=== PATIENT | female | born 1965 | race Hispanic/Latino ===

== ENCOUNTER 2016-12-27 18:00 | Observation (INO) | payer MEDICAID ==
[2016-12-27 18:00] VITALS: BMI 25.6
[2016-12-27] MEDS ORDERED: Albuterol-Ipratrop 3 mg / 0.5 (3 ml) UD INH STA (18:44)
[2016-12-27 18:45] VITALS: O2SAT 98
[2016-12-27] MEDS ORDERED: DiphenhydrAMINE 50 mg/ml Inj IVP STA (18:45)
[2016-12-27 18:58] LABS: ABG ALLEN TEST YES; ARTERIAL BLOOD GAS HCO3 23.1 mmol/L (21-28); ARTERIAL BLOOD GAS MODE NC; ARTERIAL BLOOD GAS PH 7.36 (7.35-7.45); ARTERIAL BLOOD GAS PO2 130 mm/Hg (80-100)
[2016-12-27 19:22] LABS: BASO # 0.1 K/uL (0.0-0.2); BASO % 0.7 % (0.0-2.0); EOS # 0.2 K/uL (0.0-0.7); EOS % 1.9 % (0.0-4.0); HEMATOCRIT 43.6 % (34.0-47.0); LYMPH # 3.3 K/uL (1.0-4.3); MEAN CELL VOLUME 97.4 fl (81.0-99.0); MEAN CORPUSCULAR HEMOGLOBIN 33.7 pg (27.0-31.0); MEAN CORPUSCULAR HGB CONC 34.5 g/dL (33.0-37.0); MEAN PLATELET VOLUME 9.6 fl (7.2-11.7); MONO % 9.4 % (0.0-10.0); NEUT # 6.3 K/uL (1.8-7.0); NRBC % 0.1 % (0.0-0.0); RED CELL DISTRIBUTION WIDTH 15.8 % (11.5-14.5); WHITE BLOOD COUNT 10.9 K/uL (4.8-10.8)
[2016-12-27 19:27] LABS: ALB/GLOB RATIO 1.1 (1.0-2.1); ALKALINE PHOSPHATASE 69 U/L (38-126); ALT/SGPT 18 U/L (9-52); AST/SGOT 36 U/L (14-36); BILIRUBIN,TOTAL 0.9 mg/dl (0.2-1.3); BLOOD UREA NITROGEN 9 mg/dl (7-17); CARBON DIOXIDE 21 mmol/L (22-30); CHLORIDE 106 mmol/L (98-107); GFR AFRICAN-AMERICAN > 60; GLUCOSE,RANDOM 97 mg/dL (65-105); MAGNESIUM 1.9 MG/DL (1.6-2.3); PHOSPHOROUS 4.4 mg/dl (2.5-4.5); POTASSIUM 4.7 MMOL/L (3.6-5.0); SODIUM 136 mmol/l (132-148); TOTAL PROTEIN 7.3 G/DL (6.3-8.2)
--- NOTE | 2016-12-27 19:37 | ED PDOC ---
HPI: SOB/CHF/COPD Time Seen by Provider: 12/27/16 18:14 Chief Complaint (Nursing): Shortness Of Breath Chief Complaint (Provider): Cough/Shortness of Breath History Per: Patient History/Exam Limitations: no limitations Onset/Duration Of Symptoms: Days (x4) Current Symptoms Are (Timing): Still Present Additional Complaint(s): 18:14 Gema Zapien is a 51 year old female with a history of COPD and asthma presents to the ED with a chief complaint of cough with associated greenish sputum and chest tightness that she has been experiencing for the last four days. Patient states that she has been using Albuterol with minimal relief. Her additional associated symptoms include shortness of breath, chills, rhinorrhea, and sore throat, but denies any fever leg swelling, or outright chest pain. PMD: Brijesh Johnson Past Medical History Vital Signs: Last Vital Signs Temp 98.2 F 12/28/16 02:03 Pulse 87 12/28/16 02:03 Resp 18 12/28/16 02:03 BP 118/78 12/28/16 02:03 Pulse Ox 98 12/28/16 02:03 - Medical History PMH: Asthma, COPD, HTN, Hypercholesterolemia, Pneumonia, Seizures Denies: HIV, Chronic Kidney Disease, Sexually Transmitted Disease - Family History Family History: States: Unknown Family Hx - Social History Current smoker - smoking cessation education provided: Yes SMOKER/PACKS PER DAY:: 1 Alcohol: Social - Immunization History Hx Tetanus Toxoid Vaccination: No Hx Influenza Vaccination: Yes (2013) Hx Pneumococcal Vaccination: Yes - Home Medications Home Medications: Ambulatory Orders Medication Instructions Recorded Albuterol HFA [Ventolin HFA 90 1 - 2 puff IH Q4 PRN #1 inhaler 05/10/16 mcg/actuation (8 g)] Prednisone [Deltasone] 60 mg PO DAILY 05/10/16 Tiotropium [Spiriva] 18 mcg IH DAILY 05/10/16 Albuterol HFA [Ventolin HFA 90 2 puff IH [id number] PRN #1 each 08/02/16 mcg/actuation (8 g)] Ondansetron ODT [Zofran ODT] 1 odt PO BID PRN #6 odt 08/02/16 - Allergies Allergies/Adverse Reactions: Allergies Allergy/AdvReac Type Severity Reaction Status Date / Time apple Allergy Severe ITCHING Verified 03/06/16 21:54 peach Allergy Severe ITCHING Verified 03/06/16 21:54 peanut Allergy Severe ITCHING Verified 03/06/16 21:54 plum Allergy Severe ITCHING Verified 03/06/16 21:54 Review of Systems Constitutional: Positive for: Chills. Negative for: Fever ENT: Positive for: Nose Discharge (rhinorrhea), Throat Pain (sore throat) Cardiovascular: Positive for: Other (chest tightness). Negative for: Chest Pain Respiratory: Positive for: Cough (with greenish sputum), Shortness of Breath Physical Exam - Reviewed Nursing Documentation Reviewed: Yes Vital Signs Reviewed: Yes - Physical Exam Appears: Positive for: Non-toxic, No Acute Distress (Patient is in mild respiratory distress) Head Exam: Positive for: ATRAUMATIC, NORMOCEPHALIC Skin: Positive for: Warm, Dry ENT: Positive for: Pharynx Is (clear), Other (tacky mucous membranes, normal nasal membranes) Cardiovascular/Chest: Positive for: Regular Rate, Rhythm, Chest Non Tender. Negative for: Murmur Respiratory: Positive for: Rhonchi (diffuse), Respiratory Distress (mild). Negative for: Normal Breath Sounds (lung sounds faintn), Accessory Muscle Use, Wheezing Extremity: Negative for: Pedal Edema Neurologic/Psych: Positive for: Alert, Oriented - Laboratory Results Result Diagrams: 12/27/16 19:13 12/27/16 19:13 - ECG O2 Sat by Pulse Oximetry: 98 (RA) Pulse Ox Interpretation: Normal Medical Decision Making Medical Decision Makin:45 Initial Impression: Cough/Shortness of Breath, ddx include COPD Exacerbation vs. Pneumonia vs. Bronchitis vs. Upper Respiratory Infection Initial Plan: * EKG * BNP * CMP * CBC * Magnesium * Phosphorous * Troponin 1 * Urine Dipstick * Urine * Blood Culture * Flu Swab * Albuterol 3 ml INH * Benadryl 25 mg IV * Methylprednisolone 125 mg IV * Promethazine 25 mg * Reevaluation * On reeval pt somnolent and when aroused she reports respiratory distress but does not appear so. Ordered alcohol level. Endorsed to Dr Ernandez pending sobriety. Scribe Attestation: Documented by Maria Elena Ann, acting as a scribe for Graciela Cui MD. Provider Scribe Attestation: All medical record entries made by the Scribe were at my direction and personally dictated by me. I have reviewed the chart and agree that the record accurately reflects my personal performance of the history, physical exam, medical decision making, and the department course for this patient. I have also personally directed, reviewed, and agree with the discharge instructions and disposition. Disposition - Clinical Impression Clinical Impression: Alcohol abuse with uncomplicated intoxication, COPD (chronic obstructive pulmonary disease) - Disposition Disposition Time: 00:00 Condition: GOOD
--- NOTE | 2016-12-28 01:00 | ED PDOC ---
- Laboratory Results Result Diagrams: 12/27/16 19:13 12/27/16 19:13 - ECG O2 Sat by Pulse Oximetry: 98 (RA) - Progress Re-evaluation Time: 03:00 Condition: Re-examined, Improved Medical Decision Making Medical Decision Making: Patient signed out from Dr. Cui at 0000 pending clinical sobriety. Scribe~Attestation: Documented by Montse De La Fuente acting as a~scribe~for Dr. Barrera Ernandez MD. ~ Provider~Scribe~Attestation: All medical record entries made by the~Scribe~were at my direction and personally dictated by me. I have reviewed the chart and agree that the record accurately reflects my personal performance of the history, physical exam, medical decision making, and the department course for this patient. I have also personally directed, reviewed, and agree with the discharge instructions and disposition. ~ Disposition Doctor Will See Patient In The: Office Counseled Patient/Family Regarding: Studies Performed, Diagnosis, Need For Followup - Clinical Impression Clinical Impression: Alcohol abuse with uncomplicated intoxication, COPD (chronic obstructive pulmonary disease) - POA Present On Arrival: None - Disposition Disposition: Routine/Home Disposition Time: 03:30 Condition: GOOD
[2016-12-28 02:04] VITALS: BP 118/78; PULSE 87; RESP 18; TEMP 98.2
--- NOTE | 2016-12-28 11:22 | CARD ---
APPROVED REPORT EKG Measurement Heart [id number] <Conclusion> Normal sinus rhythm Possible Left atrial enlargement Prolonged QT Abnormal ECG
== END 2016-12-28 03:55 | disposition home or self-care (01) ==
LOC: H.ER 18:00 → H.EROBSV 20:09
PROVIDERS: ADMIT Emergency Medicine; ATTEND Emergency Medicine
DX: F10.120 Alcohol abuse with intoxication, uncomplicated (principal); Y90.5 Blood alcohol level of 100-119 mg/100 ml; E78.00 Pure hypercholesterolemia, unspecified; F17.210 Nicotine dependence, cigarettes, uncomplicated; I10 Essential (primary) hypertension; J44.9 Chronic obstructive pulmonary disease, unspecified; J45.909 Unspecified asthma, uncomplicated; Z91.010 Allergy to peanuts; Z91.018 Allergy to other foods

== ENCOUNTER 2017-01-09 03:25 | Emergency (ER) | payer MEDICAID ==
[2017-01-09 03:25] VITALS: BMI 25.6
[2017-01-09 03:36] VITALS: BP 137/62; PULSE 77; RESP 17; TEMP 98.1; O2SAT 95
--- NOTE | 2017-01-09 05:33 | ED PDOC ---
HPI: Psych/Substance Abuse Time Seen by Provider: 01/09/17 03:45 Chief Complaint (Nursing): Alcohol Ingestion Chief Complaint (Provider): Alcohol Intoxication ED Caveat: Intoxicated (Alcohol intoxication) History Per: EMS History/Exam Limitations: intoxication (Alcohol intoxication) Onset/Duration Of Symptoms: Hrs Current Symptoms Are (Timing): Still Present Additional Complaint(s): Gema Zapien, a 51 year old female, presents to the ED for alcohol intoxication. The patient's history is limited due to their current state of intoxication. The patient was brought in by the EMS, who found her sitting intoxicated, outside of a homeless alf. Denies medical complaints but admits to alcohol use. Past Medical History Vital Signs: Last Vital Signs Temp 98.1 F 01/09/17 03:34 Pulse 77 01/09/17 03:34 Resp 17 01/09/17 03:34 BP 137/62 01/09/17 03:34 Pulse Ox 95 01/09/17 03:34 - Medical History PMH: Asthma, COPD, HTN, Hypercholesterolemia, Pneumonia, Seizures Denies: HIV, Chronic Kidney Disease, Sexually Transmitted Disease Other PMH: Alcoholism - Family History Family History: States: Unknown Family Hx - Immunization History Hx Tetanus Toxoid Vaccination: No Hx Influenza Vaccination: Yes (2013) Hx Pneumococcal Vaccination: Yes - Home Medications Home Medications: Ambulatory Orders Medication Instructions Recorded Albuterol HFA [Ventolin HFA 90 1 - 2 puff IH Q4 PRN #1 inhaler 05/10/16 mcg/actuation (8 g)] Prednisone [Deltasone] 60 mg PO DAILY 05/10/16 Tiotropium [Spiriva] 18 mcg IH DAILY 05/10/16 Albuterol HFA [Ventolin HFA 90 2 puff IH [id number] PRN #1 each 08/02/16 mcg/actuation (8 g)] Ondansetron ODT [Zofran ODT] 1 odt PO BID PRN #6 odt 08/02/16 - Allergies Allergies/Adverse Reactions: Allergies Allergy/AdvReac Type Severity Reaction Status Date / Time apple Allergy Severe ITCHING Verified 03/06/16 21:54 peach Allergy Severe ITCHING Verified 03/06/16 21:54 peanut Allergy Severe ITCHING Verified 03/06/16 21:54 plum Allergy Severe ITCHING Verified 03/06/16 21:54 Review of Systems Review Of Systems: ROS cannot be obtained secondary to pt's inabilty to answer questions. Neurological: Positive for: Change in Speech (Slurred speech due to alcohol intoxication) Physical Exam - Reviewed Nursing Documentation Reviewed: Yes Vital Signs Reviewed: Yes - Physical Exam Appears: Positive for: Non-toxic, No Acute Distress Head Exam: Positive for: ATRAUMATIC, NORMOCEPHALIC Skin: Positive for: Normal Color, Warm, Dry Eye Exam: Positive for: Normal appearance, EOMI, PERRL ENT: Positive for: Normal ENT Inspection Neck: Positive for: Normal, Painless ROM, Supple Cardiovascular/Chest: Positive for: Regular Rate, Rhythm, Chest Non Tender. Negative for: Tachycardia Respiratory: Positive for: Normal Breath Sounds. Negative for: Wheezing, Respiratory Distress Gastrointestinal/Abdominal: Positive for: Normal Exam, Soft. Negative for: Tenderness Back: Positive for: Normal Inspection. Negative for: L CVA Tenderness, R CVA Tenderness Extremity: Positive for: Normal ROM. Negative for: Tenderness, Deformity, Swelling Neurologic/Psych: Positive for: Alert, Oriented - ECG O2 Sat by Pulse Oximetry: 95 Medical Decision Making Medical Decision Makin:45 Initial Impression: 51 year old female with Alcohol Intoxication Initial Plan: * Alcohol serum * Drug screen * Upreg * Accucheck Labs reviewed no clinically sig abnormalities with exception of elevated BAL At 6:30AM pt observed by nursing staff to be AAO x3 and have fluent speech and steady gait. Patient ambulated out of ED without discharge papers. DX Alcohol Intoxication Stable Scribe Attestation: Documented by Elvira Rolle acting as a scribe for Julio Murrell MD. Scribe Attestation: All medical record entries made by the Scribe were at my direction and personally dictated by me. I have reviewed the chart and agree that the record accurately reflects my personal performance of the history, physical exam, medical decision making, and the department course for this patient. I have also personally directed, reviewed, and agree with the discharge instructions and disposition. Disposition - Clinical Impression Clinical Impression: Alcohol intoxication - Patient ED Disposition Is Patient to be Admitted: No - Disposition Disposition: Routine/Home Disposition Time: 06:30 Condition: STABLE
== END 2017-01-09 06:50 | disposition home or self-care (01) ==
LOC: H.ER 03:25
DX: F10.129 Alcohol abuse with intoxication, unspecified (principal); E78.00 Pure hypercholesterolemia, unspecified; I10 Essential (primary) hypertension; J44.9 Chronic obstructive pulmonary disease, unspecified; J45.909 Unspecified asthma, uncomplicated

== ENCOUNTER 2017-02-04 01:56 | Emergency (ER) | payer MEDICAID ==
[2017-02-04 01:57] VITALS: BMI 25.6
[2017-02-04] MEDS ORDERED: Albuterol-Ipratrop 3 mg / 0.5 (3 ml) UD INH STA ×2 (02:22)
[2017-02-04] MEDS ORDERED: Albuterol-Ipratrop 3 mg / 0.5 (3 ml) UD ONE (02:35)
--- NOTE | 2017-02-04 02:45 | ED PDOC ---
HPI: SOB/CHF/COPD Time Seen by Provider: 02/04/17 02:02 Chief Complaint (Nursing): Respiratory Distress Chief Complaint (Provider): Respiratory Distress History Per: Patient History/Exam Limitations: no limitations Onset/Duration Of Symptoms: Mins Associated Symptoms: denies: Fever, Chills Additional Complaint(s): 51 y/o female patient presenting to the ED with wheezing. PT came into to charge phone and seek respite from the cold. After pt was informed by security she could not stay in the ED if she is not a patient, PT asked to be entered into system for Wheezing. PT states she has a past medical history of COPD. Past Medical History Reviewed: Historical Data, Nursing Documentation, Vital Signs Vital Signs: Last Vital Signs Temp 97.8 F 02/04/17 02:12 Pulse 99 H 02/04/17 02:12 Resp 18 02/04/17 02:47 BP 121/72 02/04/17 02:12 Pulse Ox 95 02/04/17 02:53 - Medical History PMH: Asthma, COPD, HTN, Hypercholesterolemia, Pneumonia, Seizures Denies: HIV, Chronic Kidney Disease, Sexually Transmitted Disease - Family History Family History: States: Unknown Family Hx - Living Arrangements Living Arrangements: Other (Homeless) - Immunization History Hx Tetanus Toxoid Vaccination: No Hx Influenza Vaccination: Yes (2013) Hx Pneumococcal Vaccination: Yes - Home Medications Home Medications: Ambulatory Orders Medication Instructions Recorded Tiotropium [Spiriva] 18 mcg IH DAILY 05/10/16 Albuterol HFA [Ventolin HFA 90 2 puff IH [id number] PRN #1 each 08/02/16 mcg/actuation (8 g)] Montelukast [Singulair] 10 mg PO DAILY 01/22/17 Fluticasone/Salmeterol 250/50 1 puff IH BID 01/23/17 [Advair Diskus 250/50] Amoxicillin/Clavulanate [Augmentin 1 tab PO BID #14 tab 01/28/17 875 MG-125 MG] Fluticasone/Vilanterol [Breo 1 each IH DAILY #1 blst.w.dev 01/28/17 Ellipta 100-25 Mcg INH] Guaifenesin [Mucinex] 1,200 mg PO BID #30 tab.er.12h 01/28/17 Methylprednisolone [Medrol Dose 4 mg PO DAILY #21 mg 01/28/17 Pack (21 tabs)] Albuterol HFA [Ventolin HFA 90 2 puff IH [id number] #1 puff 02/04/17 mcg/actuation (8 g)] Famotidine [Pepcid] 20 mg PO BID #20 tab 02/04/17 - Allergies Allergies/Adverse Reactions: Allergies Allergy/AdvReac Type Severity Reaction Status Date / Time apple Allergy Severe ITCHING Verified 01/22/17 13:03 carrot Allergy Severe RASH Verified 01/22/17 20:47 peach Allergy Severe ITCHING Verified 01/22/17 13:03 peanut Allergy Severe ITCHING Verified 01/22/17 13:03 plum Allergy Severe ITCHING Verified 01/22/17 13:03 Review of Systems ROS Statement: Except As Marked, All Systems Reviewed And Found Negative Constitutional: Negative for: Fever, Chills Cardiovascular: Negative for: Chest Pain, Palpitations Respiratory: Positive for: Wheezing Gastrointestinal: Negative for: Nausea, Vomiting, Abdominal Pain Neurological: Positive for: Other (Disheveled) Physical Exam - Reviewed Nursing Documentation Reviewed: Yes Vital Signs Reviewed: Yes - Physical Exam Appears: Positive for: Non-toxic, No Acute Distress Head Exam: Positive for: ATRAUMATIC, NORMAL INSPECTION, NORMOCEPHALIC Skin: Positive for: Normal Color, Warm Eye Exam: Positive for: Normal appearance, EOMI, PERRL Neck: Positive for: Normal, Painless ROM, Supple Cardiovascular/Chest: Positive for: Regular Rate, Rhythm. Negative for: Murmur Respiratory: Positive for: Wheezing ((+)Wheezing Bilaterally) Extremity: Positive for: Normal ROM Neurologic/Psych: Positive for: Alert, Other (Disheveled). Negative for: Motor/ Sensory Deficits - ECG O2 Sat by Pulse Oximetry: 95 (RA) Pulse Ox Interpretation: Normal Medical Decision Making Medical Decision Making: Time: 217 Initial impression: COPD/Homelessness Initial plan: --Albuterol/Ipratropium 3ML --Albuterol/Ipratropium 3ML --Peak Flow --Peak Flow 0503: PT stable for discharge, instructed to follow up with clinic. Scribe Attestation: Documented by Elvira Evans, acting as a scribe for Samir Glaser MD Scribe Attestation: All medical record entries made by the Scribe were at my direction and personally dictated by me. I have reviewed the chart and agree that the record accurately reflects my personal performance of the history, physical exam, medical decision making, and the department course for this patient. I have also personally directed, reviewed, and agree with the discharge instructions and disposition. Disposition - Clinical Impression Clinical Impression: COPD exacerbation - Patient ED Disposition Is Patient to be Admitted: No - Disposition Referrals: [facility] [Outside] Disposition: Routine/Home Disposition Time: 05:03 Condition: STABLE Prescriptions: Albuterol HFA [Ventolin HFA 90 mcg/actuation (8 g)] 2 puff IH [id number] #1 puff Famotidine [Pepcid] 20 mg PO BID #20 tab Instructions: COPD (Chronic Obstructive Pulmonary Disease) (ED)
[2017-02-04 05:16] VITALS: BP 122/78; PULSE 92; RESP 16; TEMP 98.4; O2SAT 98
== END 2017-02-04 05:17 | disposition home or self-care (01) ==
LOC: H.ER 01:56
DX: J44.1 Chronic obstructive pulmonary disease with (acute) exacerbation (principal); E78.00 Pure hypercholesterolemia, unspecified; I10 Essential (primary) hypertension; J45.909 Unspecified asthma, uncomplicated; Z59.0 Homelessness

== ENCOUNTER 2017-04-11 21:07 | Observation (INO) | payer MEDICAID ==
[2017-04-11 21:07] VITALS: BMI 25.6
[2017-04-11 21:19] VITALS: TEMP 98.1
[2017-04-11] MEDS ORDERED: Albuterol-Ipratrop 3 mg / 0.5 (3 ml) UD INH STA (21:52)
[2017-04-11] MEDS ORDERED: Albuterol-Ipratrop 3 mg / 0.5 (3 ml) UD IH STA (21:52)
[2017-04-11] MEDS ORDERED: Sodium Chloride 0.9% 500 ML IV STA (21:52)
--- NOTE | 2017-04-11 21:56 | ED PDOC ---
HPI: SOB/CHF/COPD Chief Complaint (Provider): SOB History Per: Patient History/Exam Limitations: intoxication Onset/Duration Of Symptoms: Days Current Symptoms Are (Timing): Still Present Current Respiratory Medications: See Home Med List Associated Symptoms: Productive Cough <Vik Chandler - Last Filed: 04/11/17 22:58> <Willie Cazares - Last Filed: 04/11/17 23:22> Time Seen by Provider: 04/11/17 21:40 Chief Complaint (Nursing): Shortness Of Breath Additional Complaint(s): 52 y/o F with PMhx of COPD, Asthma, tobacco and alcohol abuse presents to ED c/ o SOB for the past 4 days associated with productive cough. Denies fever, CP, palpitations, vomiting, nausea, dizziness, abd pain. Patient is intoxicated and admits heavy alcohol intake today. She lives in a fpc. No recent traveling Hx. (Vik Chandler) Supervising Attending Note <Vik Chandler - Last Filed: 04/11/17 22:58> - Supervising Attending Note The Documented history was done by the: Physician Felled Seam Operator The documented physical exam was done by the: Physician Felled Seam Operator The documented procedures were done by the: Physician Felled Seam Operator - Attestation: I have personally seen and examined this patient.: Yes I have fully participated in the care of the patient.: Yes I have reviewed all pertinent clinical information, including history, physical exam and plan: Yes <Willie Cazares - Last Filed: 04/11/17 23:22> - Notes: Notes:: Pt. with wheezes and cough like her asthma. Tried inhaler for it. Lives in fpc. Drank etoh. (Willei Cazares) Past Medical History Reviewed: Nursing Documentation, Vital Signs - Medical History PMH: Asthma, COPD, HTN, Hypercholesterolemia, Pneumonia, Seizures Denies: HIV, Chronic Kidney Disease, Sexually Transmitted Disease - Family History Family History: States: Unknown Family Hx - Living Arrangements Living Arrangements: Other ([place]) - Social History Current smoker - smoking cessation education provided: Yes (1 pack/day) Alcohol: > 2 Drinks/Day Drugs: Denies - Immunization History Hx Tetanus Toxoid Vaccination: No Hx Influenza Vaccination: Yes (2013) Hx Pneumococcal Vaccination: Yes <Vik Chandler - Last Filed: 04/11/17 22:58> <Willie Cazares - Last Filed: 04/11/17 23:22> Vital Signs: Last Vital Signs Temp 98.1 F 04/11/17 21:16 Pulse 111 H 04/11/17 21:16 Resp 17 04/11/17 21:16 BP 104/72 04/11/17 21:16 Pulse Ox 97 04/11/17 22:58 - Home Medications Home Medications: Ambulatory Orders Medication Instructions Recorded Tiotropium [Spiriva] 18 mcg IH DAILY 05/10/16 Albuterol HFA [Ventolin HFA 90 2 puff IH [id number] PRN #1 each 08/02/16 mcg/actuation (8 g)] Montelukast [Singulair] 10 mg PO DAILY 01/22/17 Fluticasone/Salmeterol 250/50 1 puff IH BID 01/23/17 [Advair Diskus 250/50] Amoxicillin/Clavulanate [Augmentin 1 tab PO BID #14 tab 01/28/17 875 MG-125 MG] Fluticasone/Vilanterol [Breo 1 each IH DAILY #1 blst.w.dev 01/28/17 Ellipta 100-25 Mcg INH] Guaifenesin [Mucinex] 1,200 mg PO BID #30 tab.er.12h 01/28/17 Methylprednisolone [Medrol Dose 4 mg PO DAILY #21 mg 01/28/17 Pack (21 tabs)] Albuterol HFA [Ventolin HFA 90 2 puff IH [id number] #1 puff 02/04/17 mcg/actuation (8 g)] Famotidine [Pepcid] 20 mg PO BID #20 tab 02/04/17 - Allergies Allergies/Adverse Reactions: Allergies Allergy/AdvReac Type Severity Reaction Status Date / Time apple Allergy Severe ITCHING Verified 03/02/17 17:03 carrot Allergy Severe RASH Verified 03/02/17 17:03 peach Allergy Severe ITCHING Verified 03/02/17 17:03 peanut Allergy Severe ITCHING Verified 03/02/17 17:03 plum Allergy Severe ITCHING Verified 03/02/17 17:03 Wells Criteria for PE - Wells Criteria for Pulmonary Embolism Clinical Signs and Symptoms of DVT: No P.E is #1 Diagnosis, or Equally Likely: No Heart Rate >100: Yes Immobilization at least 3 days;Surgery previous 4 weeks: No Previous, objectively diagnosed PE or DVT: No Hemoptysis: No Malignancy w/treatment within 6 months, or palliative: No Total Score: 1.5 <RameshVik - Last Filed: 04/11/17 22:58> Review of Systems ROS Statement: Except As Marked, All Systems Reviewed And Found Negative Respiratory: Positive for: Cough, Shortness of Breath, Sputum, Wheezing <Joe Chandlerel - Last Filed: 04/11/17 22:58> Respiratory: Positive for: Cough, Shortness of Breath, Sputum, Wheezing <Willie Cazares Cha - Last Filed: 04/11/17 23:22> Physical Exam - Reviewed Nursing Documentation Reviewed: Yes Vital Signs Reviewed: Yes - Physical Exam Appears: Positive for: No Acute Distress. Negative for: Well (Intoxicated) Head Exam: Positive for: ATRAUMATIC, NORMAL INSPECTION Skin: Positive for: Warm Eye Exam: Positive for: EOMI, PERRL Cardiovascular/Chest: Positive for: Regular Rate, Rhythm. Negative for: Gallop , Murmur Respiratory: Positive for: Wheezing. Negative for: Crackles, Respiratory Distress Gastrointestinal/Abdominal: Positive for: Soft. Negative for: Tenderness, Guarding Extremity: Negative for: Tenderness, Pedal Edema Neurologic/Psych: Positive for: Alert <RameshVik - Last Filed: 04/11/17 22:58> - Physical Exam Respiratory: Positive for: Wheezing (b/l) <Willie Cazares Cha - Last Filed: 04/11/17 23:22> - Laboratory Results Result Diagrams: 04/11/17 21:54 04/11/17 21:53 - ECG O2 Sat by Pulse Oximetry: 97 <Vik Chandler - Last Filed: 04/11/17 22:58> - Laboratory Results Result Diagrams: 04/11/17 21:54 04/11/17 21:53 Interpretation Of Abn Labs: etoh elevation - ECG ECG: Positive for: Interpreted By Me, Viewed By Me ECG Rhythm: Positive for: Normal QRS, Normal ST Segment, Sinus Tachycardia (mild ) Pulse Ox Interpretation: Normal - Radiology X-Ray: Interpreted by Me, Viewed By Me X-Ray Interpretation: No Acute Disease <Willie Cazares - Last Filed: 04/11/17 23:22> - Progress ED Course And Treament: 2320: Stable. AAOx3. Will continue monitor. Elevated alcohol. Dr. Murrell to fu on sobriety. (Willie Cazares) Medical Decision Making <Vik Chandler - Last Filed: 04/11/17 22:58> <Willie Cazares - Last Filed: 04/11/17 23:22> Medical Decision Makin52 y/o F with PMhx of CODP, [place]ham and alcohol abuse presents c/o SOB SOB and cough most likely COPD exacerbation rule out Pneumonia CXR, CBC, CMP, Troponin, ProBnp Duoneb x2 Solumedrol IV Alcohol intoxication IV fluids Alcohol level UTox (Vik Chandler) ED OBSERVATION <Vik Chandler - Last Filed: 04/11/17 22:58> Date of observation admission: 04/11/17 Time of observation admission: 23:21 <Willie Cazares - Last Filed: 04/11/17 23:22> - Observation admission statement Patient is being placed in observation because:: alcohol abuse and dyspnea eval (Willie Cazares) - Goals of Observation Goals of observation are:: eval further and monitor (Willie Cazares) Disposition - Disposition Disposition Time: 10:50 <Vik Chandler - Last Filed: 04/11/17 22:58> - Patient ED Disposition Is Patient to be Admitted: Transfer of Care Counseled Patient/Family Regarding: Studies Performed, Diagnosis - Disposition Disposition: Transfer of Care Patient Signed Over To: Julio Murrell <Wlilie Cazares - Last Filed: 04/11/17 23:22> - Clinical Impression Clinical Impression: COPD exacerbation, ETOH abuse - Disposition Condition: FAIR
[2017-04-11] MEDS ORDERED: Albuterol-Ipratrop 3 mg / 0.5 (3 ml) UD ONE (21:58)
[2017-04-11 22:23] LABS: BASO # 0.1 K/uL (0.0-0.2); BASO % 0.7 % (0.0-2.0); EOS # 0.2 K/uL (0.0-0.7); EOS % 2.5 % (0.0-4.0); HEMOGLOBIN 16.6 g/dL (12.0-16.0); LYMPH # 3.1 K/uL (1.0-4.3); LYMPH % 40.5 % (20.0-40.0); MEAN CELL VOLUME 100.1 fl (81.0-99.0); MEAN PLATELET VOLUME 8.6 fl (7.2-11.7); MONO # 1.2 K/uL (0.0-0.8); MONO % 15.5 % (0.0-10.0); NEUT # 3.1 K/uL (1.8-7.0); NEUT % 40.8 % (50.0-75.0); NRBC % 0.1 % (0.0-0.0); RBC 4.87 Mil/uL (3.80-5.20); RED CELL DISTRIBUTION WIDTH 15.6 % (11.5-14.5); WHITE BLOOD COUNT 7.6 K/uL (4.8-10.8)
[2017-04-11 22:32] LABS: BLOOD UREA NITROGEN 7 mg/dl (7-17); CALCIUM 8.9 mg/dL (8.4-10.2); GFR AFRICAN-AMERICAN > 60; GFR NON-AFRICAN AMERICAN > 60
[2017-04-11 22:44] LABS: B-TYPE NATRIURETIC PEPTIDE 28.5 pg/ml (0-900)
--- NOTE | 2017-04-12 00:04 | ED PDOC ---
- Laboratory Results Result Diagrams: 04/11/17 21:54 04/11/17 21:53 - ECG O2 Sat by Pulse Oximetry: 97 (RA) Pulse Ox Interpretation: Normal Medical Decision Making Medical Decision Making: Time: 00:00 --Patient was signed out to provider by Dr. Willie Cazares. Pending clinical sobriety and re-evaluation. Time: 0600 --Patient is clinically sober for discharge home. Clinical Impression: COPD exacerbation; ETOH abuse. Scribe Attestation: Documented by Melissa Moreno, acting as a scribe for Julio Murrell MD. Provider Scribe Attestation: All medical record entries made by the Scribe were at my direction and personally dictated by me. I have reviewed the chart and agree that the record accurately reflects my personal performance of the history, physical exam, medical decision making, and the department course for this patient. I have also personally directed, reviewed, and agree with the discharge instructions and disposition. Disposition Doctor Will See Patient In The: Office Counseled Patient/Family Regarding: Diagnosis, Rx Given - Clinical Impression Clinical Impression: COPD exacerbation, ETOH abuse - POA Present On Arrival: None - Disposition Disposition: Routine/Home Disposition Time: 23:20 Condition: IMPROVED
[2017-04-12] MEDS ORDERED: Albuterol-Ipratrop 3 mg / 0.5 (3 ml) UD INH STA ×2 (05:55)
[2017-04-12 05:59] VITALS: BP 127/76; PULSE 85; RESP 18
[2017-04-12 06:04] VITALS: O2SAT 97
--- NOTE | 2017-04-12 07:34 | RAD ---
HISTORY: dyspnea COMPARISON: No prior. FINDINGS: LUNGS: No active pulmonary disease. PLEURA: No significant pleural effusion identified, no pneumothorax apparent. CARDIOVASCULAR: Normal. OSSEOUS STRUCTURES: No significant abnormalities. VISUALIZED UPPER ABDOMEN: Normal. OTHER FINDINGS: None. IMPRESSION: No active disease.
--- NOTE | 2017-04-12 12:02 | CARD ---
APPROVED REPORT EKG Measurement Heart [id number] VT [id number] <Conclusion> Sinus tachycardia Possible Left atrial enlargement Borderline ECG
== END 2017-04-12 06:02 | disposition home or self-care (01) ==
LOC: H.ER 21:07 → H.EROBSV 23:21
PROVIDERS: ADMIT Emergency Medicine; ATTEND Emergency Medicine
DX: J44.1 Chronic obstructive pulmonary disease with (acute) exacerbation (principal); F10.129 Alcohol abuse with intoxication, unspecified; J45.909 Unspecified asthma, uncomplicated; J44.9 Chronic obstructive pulmonary disease, unspecified; I10 Essential (primary) hypertension; E78.00 Pure hypercholesterolemia, unspecified

== ENCOUNTER 2017-04-13 06:53 | Observation (INO) | payer MEDICAID ==
[2017-04-13 06:53] VITALS: BMI 25.6
[2017-04-13 07:05] VITALS: BP 128/82; PULSE 96; RESP 16; TEMP 96.4
--- NOTE | 2017-04-13 07:27 | ED PDOC ---
HPI: Psych/Substance Abuse Time Seen by Provider: 04/13/17 07:15 Chief Complaint (Nursing): Alcohol Ingestion Chief Complaint (Provider): Alcohol Ingestion ED Caveat: Intoxicated History Per: Patient History/Exam Limitations: intoxication Onset/Duration Of Symptoms: Days (x 1) Current Symptoms Are (Timing): Still Present Additional Complaint(s): Gema is a 52-year-old female who was brought to the ED by EMS [place] being [place] in park with bottle of alcohol next to her. Patient is intoxicated, unable to provide history. No evidence of trauma. Unable to attain patient's past medical history. PMD: Unknown Past Medical History Reviewed: Unable To Obtain Vital Signs: Last Vital Signs Temp 96.4 F L 04/13/17 07:03 Pulse 96 H 04/13/17 07:03 Resp 16 04/13/17 07:03 BP 128/82 04/13/17 07:03 Pulse Ox 98 04/13/17 07:03 - Medical History PMH: Asthma, COPD, HTN, Hypercholesterolemia, Pneumonia, Seizures Denies: HIV, Chronic Kidney Disease, Sexually Transmitted Disease - Family History Family History: States: Unknown Family Hx - Immunization History Hx Tetanus Toxoid Vaccination: No Hx Influenza Vaccination: Yes (2013) Hx Pneumococcal Vaccination: Yes - Home Medications Home Medications: Ambulatory Orders Medication Instructions Recorded Tiotropium [Spiriva] 18 mcg IH DAILY 05/10/16 Albuterol HFA [Ventolin HFA 90 2 puff IH [id number] PRN #1 each 08/02/16 mcg/actuation (8 g)] Montelukast [Singulair] 10 mg PO DAILY 01/22/17 Fluticasone/Salmeterol 250/50 1 puff IH BID 01/23/17 [Advair Diskus 250/50] Amoxicillin/Clavulanate [Augmentin 1 tab PO BID #14 tab 01/28/17 875 MG-125 MG] Fluticasone/Vilanterol [Breo 1 each IH DAILY #1 blst.w.dev 01/28/17 Ellipta 100-25 Mcg INH] Guaifenesin [Mucinex] 1,200 mg PO BID #30 tab.er.12h 01/28/17 Methylprednisolone [Medrol Dose 4 mg PO DAILY #21 mg 01/28/17 Pack (21 tabs)] Albuterol HFA [Ventolin HFA 90 2 puff IH [id number] #1 puff 02/04/17 mcg/actuation (8 g)] Famotidine [Pepcid] 20 mg PO BID #20 tab 02/04/17 Albuterol HFA [Ventolin HFA 90 1 - 2 puff IH Q6 PRN #1 inhaler 04/12/17 mcg/actuation (8 g)] Methylprednisolone [Medrol Dosepak] 4 mg PO ASDIR #1 pkg 04/12/17 - Allergies Allergies/Adverse Reactions: Allergies Allergy/AdvReac Type Severity Reaction Status Date / Time apple Allergy Severe ITCHING Verified 03/02/17 17:03 carrot Allergy Severe RASH Verified 03/02/17 17:03 peach Allergy Severe ITCHING Verified 03/02/17 17:03 peanut Allergy Severe ITCHING Verified 03/02/17 17:03 plum Allergy Severe ITCHING Verified 03/02/17 17:03 Review of Systems Review Of Systems: ROS cannot be obtained secondary to pt's inabilty to answer questions. Physical Exam - Reviewed Nursing Documentation Reviewed: Yes Vital Signs Reviewed: Yes - Physical Exam Appears: Positive for: Non-toxic, No Acute Distress Head Exam: Positive for: ATRAUMATIC, NORMOCEPHALIC Skin: Positive for: Normal Color, Warm, Dry Eye Exam: Positive for: Normal appearance, PERRL Neck: Positive for: Normal, Painless ROM, Supple Cardiovascular/Chest: Positive for: Regular Rate, Rhythm. Negative for: Murmur Respiratory: Positive for: Normal Breath Sounds (Lungs clear). Negative for: Accessory Muscle Use, Respiratory Distress Gastrointestinal/Abdominal: Positive for: Normal Exam, Soft. Negative for: Tenderness Extremity: Positive for: Normal ROM. Negative for: Deformity Neurologic/Psych: Positive for: Other (sleepy but arousable). Negative for: Motor/Sensory Deficits (moving all extremities) - ECG O2 Sat by Pulse Oximetry: 98 (RA) Pulse Ox Interpretation: Normal - Progress Re-evaluation Time: 13:05 Condition: Improved (Awake alert oriented x3 No focal neuro deficits) Medical Decision Making Medical Decision Making: Time: 07:15 Initial Plan: --Alcohol serum --Pending clinical sobriety --Alcohol level: 498 mg/dl Time: 07:52 Initial Plan: --Patient admitted to ED-Observation for ETOH intoxication Scribe Attestation: Documented by Bhavani Ansari, acting as a scribe for Jeb Fregoso MD Provider Scribe Attestation: All medical record entries made by the Scribe were at my direction and personally dictated by me. I have reviewed the chart and agree that the record accurately reflects my personal performance of the history, physical exam, medical decision making, and the department course for this patient. I have also personally directed, reviewed, and agree with the discharge instructions and disposition. ED OBSERVATION Date of observation admission: 04/13/17 Time of observation admission: 07:52 - Observation admission statement Patient is being placed in observation because:: ETOH intoxication - Goals of Observation Goals of observation are:: Clinical sobriety - Progress Note Progress Note: 04/13/17 Time: 08:00 --Patient is resting comfortably. Vital signs are stable. Time: 09:30 --Patient continues to rest comfortably. Vital signs stable. Time: 11:00 --Patient is resting comfortably. Vital signs are stable. Disposition - Clinical Impression Clinical Impression: Alcohol intoxication - Patient ED Disposition Is Patient to be Admitted: No - Disposition Disposition: Routine/Home Disposition Time: 13:05 Condition: FAIR
[2017-04-13 15:14] VITALS: O2SAT 95
== END 2017-04-13 15:14 | disposition home or self-care (01) ==
LOC: H.ER 06:53 → H.EROBSV 07:52
PROVIDERS: ADMIT Emergency Medicine; ATTEND Emergency Medicine
DX: F10.129 Alcohol abuse with intoxication, unspecified (principal)

== ENCOUNTER 2017-05-04 19:38 | Observation (INO) | payer MEDICAID ==
[2017-05-04 19:38] VITALS: BMI 25.6
[2017-05-04] MEDS ORDERED: Albuterol-Ipratrop 3 mg / 0.5 (3 ml) UD INH STA ×3 (19:56→20:18)
[2017-05-04] MEDS ORDERED: Sodium Chloride 0.9% 1,000 ML IV SCH (20:00)
--- NOTE | 2017-05-04 20:02 | ED PDOC ---
HPI: Asthma Time Seen by Provider: 05/04/17 19:54 Chief Complaint (Nursing): Cough, Cold, Congestion Chief Complaint (Provider): SOB, wheezing Additional Complaint(s): 52 y/o F with PMH including COPD/Asthma brought in by EMS for wheezing/SOB. Patient reports symptoms started gradually over the last 8 hours. She has taken her ventolin rescue inhaler "several times" prior to assessment, with no improvement. Patient notes she has been having increased seasonal allergies over the last 1-2 days which preceded her symptoms. She also reports daily ETOH use (approximately 2, 20 ounce beers daily) and states she drank 2, 20 ounce beers just before presenting to ED. She denies fevers, chills, abdominal pain, nausea, vomiting or diarrhea. PMD: Dr Johnson Past Medical History Vital Signs: Last Vital Signs Temp 98.7 F 05/04/17 19:40 Pulse 101 H 05/04/17 19:40 Resp 18 05/04/17 19:40 BP 131/77 05/04/17 19:40 Pulse Ox 99 05/04/17 19:40 - Medical History PMH: Asthma, COPD, HTN, Hypercholesterolemia, Pneumonia, Seizures Denies: HIV, Chronic Kidney Disease, Sexually Transmitted Disease - Family History Family History: States: Unknown Family Hx - Immunization History Hx Tetanus Toxoid Vaccination: No Hx Influenza Vaccination: Yes (2013) Hx Pneumococcal Vaccination: Yes - Home Medications Home Medications: Ambulatory Orders Medication Instructions Recorded Tiotropium [Spiriva] 18 mcg IH DAILY 05/10/16 Albuterol HFA [Ventolin HFA 90 2 puff IH [id number] PRN #1 each 08/02/16 mcg/actuation (8 g)] Montelukast [Singulair] 10 mg PO DAILY 01/22/17 Fluticasone/Salmeterol 250/50 1 puff IH BID 01/23/17 [Advair Diskus 250/50] Amoxicillin/Clavulanate [Augmentin 1 tab PO BID #14 tab 01/28/17 875 MG-125 MG] Fluticasone/Vilanterol [Breo 1 each IH DAILY #1 blst.w.dev 01/28/17 Ellipta 100-25 Mcg INH] Guaifenesin [Mucinex] 1,200 mg PO BID #30 tab.er.12h 01/28/17 Methylprednisolone [Medrol Dose 4 mg PO DAILY #21 mg 01/28/17 Pack (21 tabs)] Albuterol HFA [Ventolin HFA 90 2 puff IH [id number] #1 puff 02/04/17 mcg/actuation (8 g)] Famotidine [Pepcid] 20 mg PO BID #20 tab 02/04/17 Albuterol HFA [Ventolin HFA 90 1 - 2 puff IH Q6 PRN #1 inhaler 04/12/17 mcg/actuation (8 g)] Methylprednisolone [Medrol Dosepak] 4 mg PO ASDIR #1 pkg 04/12/17 predniSONE [Prednisone] 40 mg PO DAILY #7 tab 05/05/17 - Allergies Allergies/Adverse Reactions: Allergies Allergy/AdvReac Type Severity Reaction Status Date / Time apple Allergy Severe ITCHING Verified 03/02/17 17:03 carrot Allergy Severe RASH Verified 03/02/17 17:03 peach Allergy Severe ITCHING Verified 03/02/17 17:03 peanut Allergy Severe ITCHING Verified 03/02/17 17:03 plum Allergy Severe ITCHING Verified 03/02/17 17:03 Review of Systems ROS Statement: Except As Marked, All Systems Reviewed And Found Negative Constitutional: Negative for: Fever, Chills Cardiovascular: Positive for: Chest Pain. Negative for: Edema, Light Headedness Respiratory: Positive for: Cough, Shortness of Breath, Wheezing Gastrointestinal: Negative for: Nausea, Vomiting, Abdominal Pain, Diarrhea Physical Exam - Reviewed Vital Signs Reviewed: Yes - Physical Exam Appears: Positive for: No Acute Distress Skin: Positive for: Warm, Dry Eye Exam: Positive for: EOMI, PERRL Cardiovascular/Chest: Positive for: Regular Rate, Rhythm, Other (Regular rhythm. Sternal/Chest wall tenderness. ). Negative for: Edema, Murmur Respiratory: Positive for: Wheezing (Diffuse inspiratory/expiratory wheezes present), Other (B/L air entry present. Speaking in full sentences.). Negative for: Accessory Muscle Use Pulses-Radial (L): 2+ Pulses-Radial (R): 2+ Gastrointestinal/Abdominal: Positive for: Bowel Sounds (normal), Soft. Negative for: Tenderness, Distended Extremity: Positive for: Capillary Refill (<3s). Negative for: Pedal Edema, Calf Tenderness Neurologic/Psych: Positive for: Alert, Oriented (x3) - Laboratory Results Result Diagrams: 05/04/17 20:40 05/04/17 20:40 - ECG O2 Sat by Pulse Oximetry: 99 - Progress ED Course And Treament: 0:08 Patient seen and reexamined. Sleeping comfortably in bed, arousable to voice. Respiratory status has improved from initial assessment. ETOH level 404. O2 Sat 98% on RA. Banana bag started. 06:00 Patient remains stable. O2 sat 98-99% on RA. Plan for d/c. Condition: Improved Disposition - Clinical Impression Clinical Impression: Asthma exacerbation, Asthma exacerbation, Alcohol intoxication - Patient ED Disposition Is Patient to be Admitted: No Counseled Patient/Family Regarding: Studies Performed, Need For Followup, Rx Given - Disposition Disposition: Routine/Home Disposition Time: 06:10 Condition: IMPROVED
[2017-05-04] MEDS ORDERED: Albuterol-Ipratrop 3 mg / 0.5 (3 ml) UD ONE (20:04)
[2017-05-04 20:46] LABS: BASO # 0.1 K/uL (0.0-0.2); LYMPH # 4.3 K/uL (1.0-4.3); MEAN PLATELET VOLUME 8.9 fl (7.2-11.7); NRBC % 0.1 % (0.0-0.0)
[2017-05-04 20:51] LABS: BASO % 0.7 % (0.0-2.0); EOS # 0.1 K/uL (0.0-0.7); HEMATOCRIT 47.5 % (34.0-47.0); LYMPH % 36.8 % (20.0-40.0); MEAN CORPUSCULAR HEMOGLOBIN 34.1 pg (27.0-31.0); MEAN CORPUSCULAR HGB CONC 34.5 g/dL (33.0-37.0); MONO # 1.3 K/uL (0.0-0.8); MONO % 11.1 % (0.0-10.0); NEUT # 5.9 K/uL (1.8-7.0); NEUT % 50.4 % (50.0-75.0); RED CELL DISTRIBUTION WIDTH 14.2 % (11.5-14.5); WHITE BLOOD COUNT 11.8 K/uL (4.8-10.8)
[2017-05-04 21:00] LABS: ALB/GLOB RATIO 1.4 (1.0-2.1); ALKALINE PHOSPHATASE 101 U/L (38-126); ALT/SGPT 33 U/L (9-52); AST/SGOT 51 U/L (14-36); BILIRUBIN,TOTAL 0.6 mg/dl (0.2-1.3); BLOOD UREA NITROGEN 11 mg/dl (7-17); CALCIUM 9.2 mg/dL (8.4-10.2); CARBON DIOXIDE 22 mmol/L (22-30); CHLORIDE 106 mmol/L (98-107); GFR AFRICAN-AMERICAN > 60; GLUCOSE,RANDOM 97 mg/dL (65-105); SODIUM 144 mmol/l (132-148); TOTAL PROTEIN 7.7 G/DL (6.3-8.2)
[2017-05-04 21:01] LABS: POTASSIUM 4.9 MMOL/L (3.6-5.0)
[2017-05-04 21:08] LABS: ALCOHOL SERUM 404 mg/dl (0-10)
[2017-05-04] MEDS ORDERED: Multivitamin (MVI) 10 ML, Thiamine 100 MG, Folic Acid 1 MG in Sodium Chloride 0.9% 1,00... IV ONE (22:20)
[2017-05-05 06:23] VITALS: BP 132/72; PULSE 92; RESP 18; TEMP 98.9; O2SAT 98
[2017-05-05] MEDS ORDERED: Albuterol-Ipratrop 3 mg / 0.5 (3 ml) UD ONE (21:49)
== END 2017-05-05 06:23 | disposition home or self-care (01) ==
LOC: H.ER 19:38 → H.EROBSV 21:06
PROVIDERS: ADMIT Emergency Medicine; ATTEND Emergency Medicine
DX: F10.129 Alcohol abuse with intoxication, unspecified (principal); J44.9 Chronic obstructive pulmonary disease, unspecified; J45.901 Unspecified asthma with (acute) exacerbation; I10 Essential (primary) hypertension; E78.00 Pure hypercholesterolemia, unspecified
CPT/HCPCS: 80053; 80320; 84484; 85025; 94150; 94640; 96361; 96374; 96375; 99284; G0378; J2930; J3411; J7040

== ENCOUNTER 2017-05-05 21:28 | Observation (INO) | payer MEDICAID ==
[2017-05-05 21:28] VITALS: BMI 25.6
[2017-05-05 21:30] VITALS: TEMP 98.6
[2017-05-05] MEDS ORDERED: Albuterol-Ipratrop 3 mg / 0.5 (3 ml) UD INH STA (21:43)
--- NOTE | 2017-05-05 22:41 | ED PDOC ---
HPI: SOB/CHF/COPD Time Seen by Provider: 05/05/17 21:37 Chief Complaint (Nursing): Shortness Of Breath Chief Complaint (Provider): SOB History Per: Patient History/Exam Limitations: no limitations Onset/Duration Of Symptoms: Persistent Current Symptoms Are (Timing): Still Present Additional Complaint(s): The patient is a 52yo female, pmhx of alcoholism, COPD, presents to the ED for evaluation of two days increasing cough, chest tightness and shortness of breath consistent with previous episodes of COPD exacerbation. Pt reports a productive cough but denies any fever. She admits to drinking alcohol today. Of note, pt was seen in the facility yesterday for similar complaints and alcohol intoxication. She denies any other medical complaints. PCP: Hamida rodriguez Past Medical History Reviewed: Historical Data, Nursing Documentation, Vital Signs Vital Signs: Last Vital Signs Temp 98.6 F 05/05/17 21:28 Pulse 119 H 05/05/17 22:44 Resp 20 05/05/17 22:10 BP 131/68 05/05/17 21:28 Pulse Ox 93 L 05/05/17 22:44 - Medical History PMH: Asthma, COPD, HTN, Hypercholesterolemia, Pneumonia, Seizures Denies: HIV, Chronic Kidney Disease, Sexually Transmitted Disease - Surgical History Surgical History: No Surg Hx - Family History Family History: States: Unknown Family Hx - Social History Current smoker - smoking cessation education provided: Yes Alcohol: > 2 Drinks/Day - Immunization History Hx Tetanus Toxoid Vaccination: No Hx Influenza Vaccination: Yes (2013) Hx Pneumococcal Vaccination: Yes - Home Medications Home Medications: Ambulatory Orders Medication Instructions Recorded Tiotropium [Spiriva] 18 mcg IH DAILY 05/10/16 Albuterol HFA [Ventolin HFA 90 2 puff IH [id number] PRN #1 each 08/02/16 mcg/actuation (8 g)] Montelukast [Singulair] 10 mg PO DAILY 01/22/17 Fluticasone/Salmeterol 250/50 1 puff IH BID 01/23/17 [Advair Diskus 250/50] Amoxicillin/Clavulanate [Augmentin 1 tab PO BID #14 tab 01/28/17 875 MG-125 MG] Fluticasone/Vilanterol [Breo 1 each IH DAILY #1 blst.w.dev 01/28/17 Ellipta 100-25 Mcg INH] Guaifenesin [Mucinex] 1,200 mg PO BID #30 tab.er.12h 01/28/17 Methylprednisolone [Medrol Dose 4 mg PO DAILY #21 mg 01/28/17 Pack (21 tabs)] Albuterol HFA [Ventolin HFA 90 2 puff IH [id number] #1 puff 02/04/17 mcg/actuation (8 g)] Famotidine [Pepcid] 20 mg PO BID #20 tab 02/04/17 Albuterol HFA [Ventolin HFA 90 1 - 2 puff IH Q6 PRN #1 inhaler 04/12/17 mcg/actuation (8 g)] Methylprednisolone [Medrol Dosepak] 4 mg PO ASDIR #1 pkg 04/12/17 predniSONE [Prednisone] 40 mg PO DAILY #7 tab 05/05/17 - Allergies Allergies/Adverse Reactions: Allergies Allergy/AdvReac Type Severity Reaction Status Date / Time apple Allergy Severe ITCHING Verified 03/02/17 17:03 carrot Allergy Severe RASH Verified 03/02/17 17:03 peach Allergy Severe ITCHING Verified 03/02/17 17:03 peanut Allergy Severe ITCHING Verified 03/02/17 17:03 plum Allergy Severe ITCHING Verified 03/02/17 17:03 Review of Systems ROS Statement: Except As Marked, All Systems Reviewed And Found Negative Constitutional: Negative for: Fever, Chills Cardiovascular: Positive for: Chest Pain (tightness) Respiratory: Positive for: Cough, Shortness of Breath, Sputum Physical Exam - Reviewed Nursing Documentation Reviewed: Yes Vital Signs Reviewed: Yes - ECG ECG: Positive for: Interpreted By Me, Viewed By Me ECG Rhythm: Positive for: Normal QRS, Normal ST Segment, Sinus Tachycardia. Negative for: ST/T Changes Rate: 119 O2 Sat by Pulse Oximetry: 93 (RA) Medical Decision Making Medical Decision Making: Time: 2144 Impression: Alcohol intoxication, COPD exacerbation Plan: -- Duoneb 9ml INH -- PSolumedrol 125 mg IVP -- ED Observation --Reassess Scribe Attestation: Documented by Michelle Galo acting as a scribe for Graciela Cui MD Provider Scribe Attestation: All medical record entries made by the Scribe were at my direction and personally dictated by me. I have reviewed the chart and agree that the record accurately reflects my personal performance of the history, physical exam, medical decision making, and the department course for this patient. I have also personally directed, reviewed, and agree with the discharge instructions and disposition. ED OBSERVATION Date of observation admission: 05/05/17 Time of observation admission: 21:45 - Observation admission statement Patient is being placed in observation because:: Pt w/ alcohol intoxication and COPD exacerbation - Goals of Observation Goals of observation are:: Resolution of symptoms - Progress Note Progress Note: 05/05/17 23:02 Pt resting in room, no acute distress. Disposition - Disposition
[2017-05-05] MEDS ORDERED: Multivitamin (MVI) 10 ML, Thiamine 100 MG, Folic Acid 1 MG in Sodium Chloride 0.9% 1,00... IV ONE (23:48)
--- NOTE | 2017-05-06 00:09 | ED PDOC ---
- ECG O2 Sat by Pulse Oximetry: 93 (RA) Medical Decision Making Medical Decision Makin Patient signed out to me from Dr. Cui pending sobriety. Patient is in ED OBS. Scribe Attestation: Documented by Robyn Ford acting as a scribe for Alie Alejandre MD. Scribrao Attestation: All medical record entries made by the Scribe were at my direction and personally dictated by me. I have reviewed the chart and agree that the record accurately reflects my personal performance of the history, physical exam, medical decision making, and the department course for this patient. I have also personally directed, reviewed, and agree with the discharge instructions and disposition. (Alie Alejandre) Disposition - Clinical Impression Clinical Impression: Shortness of breath - Disposition Condition: IMPROVED ED OBSERVATION Date of observation admission: 05/05/17 Time of observation admission: 21:44 - Observation admission statement Patient is being placed in observation because:: alcohol intoxication (Alie Alejandre) - Goals of Observation Goals of observation are:: clinical sobriety (Alie Alejandre) - Progress Note Progress Note: 05/06/17 00:09 Patient resting comfortably. Vitals stable. 05/06/17 01:09 Patient resting comfortably. Vitals stable. 05/06/17 02:30 Patient resting comfortably. Vitals stable. 05/06/17 04:00 Patient resting comfortably. Vitals stable. 05/06/17 05:29 Patient resting comfortably. Vitals stable. 05/06/17 07:00 Patient resting comfortably. Vitals stable. (Alie Alejandre)
[2017-05-06 05:48] VITALS: BP 124/78; PULSE 71; RESP 16
[2017-05-06 06:17] VITALS: O2SAT 98
--- NOTE | 2017-05-06 06:19 | ED PDOC ---
- ECG O2 Sat by Pulse Oximetry: 98 Medical Decision Making Medical Decision Makin Patient signed out to me from Dr. Cui pending sobriety. Patient is in ED OBS. Scribe Attestation: Documented by Robyn Ford acting as a scribe for Alie Alejandre MD. Scribe Attestation: All medical record entries made by the Scribe were at my direction and personally dictated by me. I have reviewed the chart and agree that the record accurately reflects my personal performance of the history, physical exam, medical decision making, and the department course for this patient. I have also personally directed, reviewed, and agree with the discharge instructions and disposition. Disposition Counseled Patient/Family Regarding: Studies Performed, Diagnosis, Need For Followup - Clinical Impression Clinical Impression: Shortness of breath, Alcohol abuse - POA Present On Arrival: None - Disposition Disposition: Routine/Home (ED OBS) Disposition Time: 06:44 Condition: IMPROVED ED OBSERVATION Discharge: Yes Date of observation admission: 05/06/17 Time of observation admission: 21:44 - Observation admission statement Patient is being placed in observation because:: etoh intoxication - Goals of Observation Goals of observation are:: clinical sobriety - Progress Note Progress Note: 05/06/17 00:09 Patient resting comfortably. Vitals stable. 05/06/17 01:09 Patient resting comfortably. Vitals stable. 05/06/17 02:30 Patient resting comfortably. Vitals stable. 05/06/17 04:00 Patient resting comfortably. Vitals stable. 05/06/17 05:29 Patient is awake, alert, oriented x3 and walking with a steady gait. Patient is stable for discharge home.
== END 2017-05-06 04:46 | disposition home or self-care (01) ==
LOC: H.ER 21:28 → H.EROBSV 21:44
PROVIDERS: ADMIT Emergency Medicine; ATTEND Emergency Medicine
DX: J44.1 Chronic obstructive pulmonary disease with (acute) exacerbation (principal); F10.229 Alcohol dependence with intoxication, unspecified; E78.00 Pure hypercholesterolemia, unspecified; I10 Essential (primary) hypertension; Z87.01 Personal history of pneumonia (recurrent); R56.9 Unspecified convulsions; F17.200 Nicotine dependence, unspecified, uncomplicated; Z79.899 Other long term (current) drug therapy; R07.89 Other chest pain
CPT/HCPCS: 80320; 82948; 96360; 96361; 96374; 99283; G0378; J2930; J3411; J7040

== ENCOUNTER 2017-06-11 01:49 | Emergency (ER) | payer MEDICAID ==
[2017-06-11 01:49] VITALS: BMI 25.6
[2017-06-11 02:08] VITALS: TEMP 97.5; O2SAT 92
[2017-06-11] MEDS ORDERED: Albuterol-Ipratrop 3 mg / 0.5 (3 ml) UD IH STA (02:40)
--- NOTE | 2017-06-11 02:43 | ED PDOC ---
HPI: SOB/CHF/COPD Time Seen by Provider: 06/11/17 02:14 Chief Complaint (Nursing): Shortness Of Breath Chief Complaint (Provider): shortness of breath History Per: Patient History/Exam Limitations: no limitations Onset/Duration Of Symptoms: Hrs Current Symptoms Are (Timing): Still Present Initiating Event: Out Of Medications Additional History Per: Patient Additional Complaint(s): 52 y/o female history of asthma, COPD presents with shortness of breath x 5 hours. Patient states she ran out of her ventolin inhaler. Denies fever, congestion, chest pain, palpitations. Past Medical History Reviewed: Historical Data, Nursing Documentation, Vital Signs Vital Signs: Last Vital Signs Temp 97.5 F L 06/11/17 02:05 Pulse 89 06/11/17 04:36 Resp 16 06/11/17 04:36 BP 135/80 06/11/17 04:36 Pulse Ox 92 L 06/11/17 04:36 - Medical History PMH: Asthma, COPD, HTN, Hypercholesterolemia, Pneumonia, Seizures Denies: HIV, Chronic Kidney Disease, Sexually Transmitted Disease - Family History Family History: States: Unknown Family Hx - Immunization History Hx Tetanus Toxoid Vaccination: No Hx Influenza Vaccination: Yes (2013) Hx Pneumococcal Vaccination: Yes - Home Medications Home Medications: Ambulatory Orders Medication Instructions Recorded Tiotropium [Spiriva] 18 mcg IH DAILY 05/10/16 Albuterol HFA [Ventolin HFA 90 2 puff IH [id number] PRN #1 each 08/02/16 mcg/actuation (8 g)] Montelukast [Singulair] 10 mg PO DAILY 01/22/17 Fluticasone/Salmeterol 250/50 1 puff IH BID 01/23/17 [Advair Diskus 250/50] Amoxicillin/Clavulanate [Augmentin 1 tab PO BID #14 tab 01/28/17 875 MG-125 MG] Fluticasone/Vilanterol [Breo 1 each IH DAILY #1 blst.w.dev 01/28/17 Ellipta 100-25 Mcg INH] Guaifenesin [Mucinex] 1,200 mg PO BID #30 tab.er.12h 01/28/17 Methylprednisolone [Medrol Dose 4 mg PO DAILY #21 mg 01/28/17 Pack (21 tabs)] Albuterol HFA [Ventolin HFA 90 2 puff IH [id number] #1 puff 02/04/17 mcg/actuation (8 g)] Famotidine [Pepcid] 20 mg PO BID #20 tab 02/04/17 Albuterol HFA [Ventolin HFA 90 1 - 2 puff IH Q6 PRN #1 inhaler 04/12/17 mcg/actuation (8 g)] Methylprednisolone [Medrol Dosepak] 4 mg PO ASDIR #1 pkg 04/12/17 predniSONE [Prednisone] 40 mg PO DAILY #7 tab 05/05/17 Albuterol HFA [Ventolin HFA 90 1 puff IH Q4 PRN #1 inh 06/11/17 mcg/actuation (8 g)] Prednisone 50 mg PO DAILY #4 tablet 06/11/17 - Allergies Allergies/Adverse Reactions: Allergies Allergy/AdvReac Type Severity Reaction Status Date / Time apple Allergy Severe ITCHING Verified 03/02/17 17:03 carrot Allergy Severe RASH Verified 03/02/17 17:03 peach Allergy Severe ITCHING Verified 03/02/17 17:03 peanut Allergy Severe ITCHING Verified 03/02/17 17:03 plum Allergy Severe ITCHING Verified 03/02/17 17:03 Review of Systems ROS Statement: Except As Marked, All Systems Reviewed And Found Negative Respiratory: Positive for: Shortness of Breath, Wheezing Physical Exam - Reviewed Nursing Documentation Reviewed: Yes Vital Signs Reviewed: Yes - Physical Exam Appears: Positive for: Well, Non-toxic, No Acute Distress Head Exam: Positive for: ATRAUMATIC, NORMAL INSPECTION, NORMOCEPHALIC Skin: Positive for: Normal Color Eye Exam: Positive for: Normal appearance ENT: Positive for: Normal ENT Inspection Cardiovascular/Chest: Positive for: Regular Rate, Rhythm Respiratory: Positive for: Wheezing (diffuse expiratory) Gastrointestinal/Abdominal: Positive for: Normal Exam Back: Positive for: Normal Inspection Extremity: Positive for: Normal ROM Neurologic/Psych: Positive for: Alert - ECG ECG: Positive for: Viewed By Me (reviewed by ED attending) ECG Rhythm: Positive for: Sinus Rhythm O2 Sat by Pulse Oximetry: 92 - Progress ED Course And Treament: duonebs, solumedrol, accucheck On re-eval, patient states she is feeling better. O2 95% room air. Rx albuterol, prednisone provided. Follow up PMD 2-3 days. Return to ED for worsening/concerning symptoms. Disposition - Clinical Impression Clinical Impression: COPD exacerbation - Patient ED Disposition Is Patient to be Admitted: No Counseled Patient/Family Regarding: Studies Performed, Diagnosis, Need For Followup, Rx Given - Disposition Referrals: Brijesh Johnson MD [Primary Care Provider] - Disposition: Routine/Home Disposition Time: 05:21 Condition: IMPROVED Prescriptions: Albuterol HFA [Ventolin HFA 90 mcg/actuation (8 g)] 1 puff IH Q4 PRN #1 inh PRN Reason: Wheezing Prednisone 50 mg PO DAILY #4 tablet Instructions: COPD (Chronic Obstructive Pulmonary Disease) (ED)
[2017-06-11] MEDS ORDERED: Albuterol-Ipratrop 3 mg / 0.5 (3 ml) UD ONE ×2 (03:53→04:15)
[2017-06-11 04:37] VITALS: BP 135/80; PULSE 89; RESP 16
== END 2017-06-11 05:35 | disposition home or self-care (01) ==
LOC: H.ER 01:49
DX: J44.1 Chronic obstructive pulmonary disease with (acute) exacerbation (principal)
CPT/HCPCS: 94640; 96374; 99282; J2930

== ENCOUNTER 2017-08-16 20:33 | Emergency (ER) | payer MEDICAID ==
[2017-08-16 20:33] VITALS: BMI 25.6
[2017-08-16 20:46] VITALS: TEMP 97.6
--- NOTE | 2017-08-16 21:50 | ED PDOC ---
HPI: Psych/Substance Abuse Time Seen by Provider: 08/16/17 21:35 Chief Complaint (Nursing): Alcohol Ingestion Chief Complaint (Provider): intoxication Additional Complaint(s): 52yo F in ED homeless and intoxicated. offers no medical complaints. admits she needs a place to rest. Past Medical History Reviewed: Historical Data, Nursing Documentation, Vital Signs Vital Signs: Last Vital Signs Temp 97.6 F 08/16/17 20:40 Pulse 96 H 08/16/17 20:40 Resp 16 08/16/17 20:40 BP 111/67 08/16/17 20:40 Pulse Ox 96 08/16/17 20:40 - Medical History PMH: Asthma, COPD, HTN, Hypercholesterolemia, Pneumonia, Seizures Denies: HIV, Chronic Kidney Disease, Sexually Transmitted Disease - Family History Family History: States: Unknown Family Hx - Immunization History Hx Tetanus Toxoid Vaccination: No Hx Influenza Vaccination: Yes (2013) Hx Pneumococcal Vaccination: Yes - Home Medications Home Medications: Ambulatory Orders Medication Instructions Recorded Tiotropium [Spiriva] 18 mcg IH DAILY 05/10/16 Albuterol HFA [Ventolin HFA 90 2 puff IH [id number] PRN #1 each 08/02/16 mcg/actuation (8 g)] Montelukast [Singulair] 10 mg PO DAILY 01/22/17 Fluticasone/Salmeterol 250/50 1 puff IH BID 01/23/17 [Advair Diskus 250/50] Amoxicillin/Clavulanate [Augmentin 1 tab PO BID #14 tab 01/28/17 875 MG-125 MG] Fluticasone/Vilanterol [Breo 1 each IH DAILY #1 blst.w.dev 01/28/17 Ellipta 100-25 Mcg INH] Guaifenesin [Mucinex] 1,200 mg PO BID #30 tab.er.12h 01/28/17 Methylprednisolone [Medrol Dose 4 mg PO DAILY #21 mg 01/28/17 Pack (21 tabs)] Albuterol HFA [Ventolin HFA 90 2 puff IH [id number] #1 puff 02/04/17 mcg/actuation (8 g)] Famotidine [Pepcid] 20 mg PO BID #20 tab 02/04/17 Albuterol HFA [Ventolin HFA 90 1 - 2 puff IH Q6 PRN #1 inhaler 04/12/17 mcg/actuation (8 g)] Methylprednisolone [Medrol Dosepak] 4 mg PO ASDIR #1 pkg 04/12/17 predniSONE [Prednisone] 40 mg PO DAILY #7 tab 05/05/17 Albuterol HFA [Ventolin HFA 90 1 puff IH Q4 PRN #1 inh 06/11/17 mcg/actuation (8 g)] Prednisone 50 mg PO DAILY #4 tablet 06/11/17 - Allergies Allergies/Adverse Reactions: Allergies Allergy/AdvReac Type Severity Reaction Status Date / Time apple Allergy Severe ITCHING Verified 03/02/17 17:03 carrot Allergy Severe RASH Verified 03/02/17 17:03 peach Allergy Severe ITCHING Verified 03/02/17 17:03 peanut Allergy Severe ITCHING Verified 03/02/17 17:03 plum Allergy Severe ITCHING Verified 03/02/17 17:03 Review of Systems ROS Statement: Except As Marked, All Systems Reviewed And Found Negative Constitutional: Negative for: Fever Physical Exam - Reviewed Nursing Documentation Reviewed: Yes Vital Signs Reviewed: Yes - Physical Exam Appears: Positive for: Well, Non-toxic, No Acute Distress Head Exam: Positive for: ATRAUMATIC, NORMAL INSPECTION, NORMOCEPHALIC Skin: Positive for: Normal Color, Warm, DRY Eye Exam: Positive for: EOMI, Normal appearance, PERRL Cardiovascular/Chest: Positive for: Regular Rate, Rhythm Respiratory: Positive for: CNT, Normal Breath Sounds Neurologic/Psych: Positive for: Alert, Oriented - ECG O2 Sat by Pulse Oximetry: 96 Disposition - Clinical Impression Clinical Impression: Alcohol ingestion - Patient ED Disposition Is Patient to be Admitted: Transfer of Care - Disposition Disposition Time: 12:27 Condition: STABLE Instructions: Alcohol Intoxication (ED) Forms: [employer] ([place])
--- NOTE | 2017-08-17 00:04 | ED PDOC ---
- ECG O2 Sat by Pulse Oximetry: 96 Medical Decision Making Medical Decision Making: Case endorsed to consumer loan underwriter from [employer] at 0000 pending clinical sobriety Pt monitored in ED overnight. asleep, arousable to verbal stimuli Pt stable for discharge in am Disposition - Clinical Impression Clinical Impression: Alcohol ingestion - POA Present On Arrival: None - Disposition Disposition: Routine/Home Disposition Time: 05:09 Condition: STABLE Instructions: Alcohol Intoxication (ED) Forms: [employer] ([place])
[2017-08-17 05:21] VITALS: BP 118/78; PULSE 89; RESP 16
[2017-08-17 12:27] VITALS: O2SAT 96
== END 2017-08-17 05:30 | disposition home or self-care (01) ==
LOC: H.ER 20:33
DX: F10.129 Alcohol abuse with intoxication, unspecified (principal); E78.00 Pure hypercholesterolemia, unspecified; I10 Essential (primary) hypertension; J44.9 Chronic obstructive pulmonary disease, unspecified; Z59.0 Homelessness

== ENCOUNTER 2017-09-21 00:48 | Emergency (ER) | payer MEDICAID ==
[2017-09-21 00:48] VITALS: BMI 25.6
[2017-09-21 00:59] VITALS: BP 139/84; PULSE 99; RESP 17; TEMP 98.3; O2SAT 97
[2017-09-21] MEDS ORDERED: Albuterol-Ipratrop 3 mg / 0.5 (3 ml) UD INH STA (01:02)
[2017-09-21] MEDS ORDERED: Albuterol-Ipratrop 3 mg / 0.5 (3 ml) UD ONE (01:06)
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
== END 2017-09-21 02:27 | disposition home or self-care (01) ==
LOC: H.ER 00:48
DX: J45.901 Unspecified asthma with (acute) exacerbation (principal); E78.00 Pure hypercholesterolemia, unspecified; I10 Essential (primary) hypertension; J44.9 Chronic obstructive pulmonary disease, unspecified

== ENCOUNTER 2017-09-29 12:02 | Emergency (ER) | payer MEDICAID ==
[2017-09-29 12:03] VITALS: BMI 28.3
[2017-09-29 12:28] VITALS: BP 131/90; PULSE 105; TEMP 98.2
[2017-09-29 13:08] VITALS: RESP 20; O2SAT 95
[2017-09-29] MEDS ORDERED: Albuterol-Ipratrop 3 mg / 0.5 (3 ml) UD INH STA ×2 (13:09→18:32)
[2017-09-29] MEDS ORDERED: Azithromycin 500 MG in Sodium Chloride 0.9% 250 ML IVPB STA (13:09)
--- NOTE | 2017-09-29 13:12 | ED PDOC ---
HPI: SOB/CHF/COPD Time Seen by Provider: 09/29/17 12:41 Chief Complaint (Nursing): Shortness Of Breath Chief Complaint (Provider): "im short of breath and my legs are swollen" History Per: Patient History/Exam Limitations: no limitations Onset/Duration Of Symptoms: Days, Persistent Current Symptoms Are (Timing): Still Present Initiating Event: Upper Respiratory Illness Quality: Tightness Exacerbating Factor(s): Coughing Severity: Mild Pain Scale Rating Of: 3 Associated Symptoms: Productive Cough, Ankle/Leg Swelling Additional Complaint(s): 52 y/o homeless F, hx of COPD an heavy tobacco abuse presents for evaluation of cough, SOB, and b/l leg edema. Pt reports suffering from a flu-like illness approx 1 week ago. Once the flu like symptoms resolved, she started having increased phlegmous cough frequency associated with increased sputum purulence and production. She attempted to use her COPD meds more frequently to alleviate the symptoms w/o much improvement. She also reports increased b/l pedal edema for 1 week. There has been episodic chest pain which she says is from the coughing. She denies any fever/chills, headaches, changes in vision, SOB/ palpitations, N/V/C/D, urinary symptoms. PMD: [place] Past Medical History Reviewed: Historical Data, Nursing Documentation, Vital Signs Vital Signs: Last Vital Signs Temp 98.2 F 09/29/17 12:22 Pulse 105 H 09/29/17 12:22 Resp 20 09/29/17 13:00 BP 131/90 09/29/17 12:22 Pulse Ox 95 09/29/17 18:32 - Medical History PMH: Asthma, COPD, HTN, Hypercholesterolemia, Pneumonia, Seizures Denies: HIV, Chronic Kidney Disease, Sexually Transmitted Disease - Family History Family History: States: Unknown Family Hx - Immunization History Hx Tetanus Toxoid Vaccination: No Hx Influenza Vaccination: Yes (2013) Hx Pneumococcal Vaccination: Yes - Home Medications Home Medications: Ambulatory Orders Medication Instructions Recorded Tiotropium [Spiriva] 18 mcg IH DAILY 05/10/16 Montelukast [Singulair] 10 mg PO DAILY 01/22/17 Fluticasone/Salmeterol 250/50 1 puff IH BID 01/23/17 [Advair Diskus 250/50] Fluticasone/Vilanterol [Breo 1 each IH DAILY #1 blst.w.dev 01/28/17 Ellipta 100-25 Mcg INH] Albuterol HFA [Ventolin HFA 90 2 puff IH [id number] #1 puff 02/04/17 mcg/actuation (8 g)] Albuterol HFA [Ventolin HFA 90 0.09 mg IH Q6 #1 unit 08/20/17 mcg/actuation (8 g)] - Allergies Allergies/Adverse Reactions: Allergies Allergy/AdvReac Type Severity Reaction Status Date / Time apple Allergy Severe ITCHING Verified 09/25/17 15:27 carrot Allergy Severe RASH Verified 09/25/17 15:27 peach Allergy Severe ITCHING Verified 09/25/17 15:27 peanut Allergy Severe ITCHING Verified 09/25/17 15: plum Allergy Severe ITCHING Verified 09/25/17 15:27 Review of Systems ROS Statement: Except As Marked, All Systems Reviewed And Found Negative Physical Exam - Reviewed Nursing Documentation Reviewed: Yes Vital Signs Reviewed: Yes - Physical Exam Appears: Positive for: Non-toxic, No Acute Distress Head Exam: Positive for: ATRAUMATIC Skin: Positive for: Warm, Dry Eye Exam: Positive for: EOMI, PERRL, Conjunctival injection (b/l injection ). Negative for: Periorbital swelling, Periorbital tenderness, Scleral icterus ENT: Positive for: Normal ENT Inspection Neck: Positive for: Normal, Painless ROM, Supple Cardiovascular/Chest: Positive for: Regular Rate, Rhythm. Negative for: JVD, Murmur Respiratory: Positive for: Decreased Breath Sounds (decreased bibasilar ), Rhonchi (scattered ), Wheezing (scattered exp wheezes ). Negative for: Accessory Muscle Use, Crackles, Rales, Respiratory Distress Pulses-Radial (L): 2+ Pulses-Radial (R): 2+ Extremity: Positive for: Other (dry, exematous skin ). 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
[2017-09-29] MEDS ORDERED: Albuterol-Ipratrop 3 mg / 0.5 (3 ml) UD ONE (13:15)
[2017-09-29] MEDS ORDERED: Azithromycin 500 MG IV IVPB ONE (13:15)
[2017-09-29 13:40] LABS: HEMOGLOBIN 15.1 g/dL (12.0-16.0); MEAN CORPUSCULAR HEMOGLOBIN 32.7 pg (27.0-31.0); MEAN CORPUSCULAR HGB CONC 33.7 g/dL (33.0-37.0); RBC 4.62 Mil/uL (3.80-5.20); RED CELL DISTRIBUTION WIDTH 14.5 % (11.5-14.5); WHITE BLOOD COUNT 10.2 K/uL (4.8-10.8)
[2017-09-29 14:10] LABS: B-TYPE NATRIURETIC PEPTIDE 153 pg/ml (0-900)
[2017-09-29 14:14] LABS: ALB/GLOB RATIO 1.3 (1.0-2.1); ALBUMIN 3.7 g/dL (3.5-5.0); ALT/SGPT 47 U/L (9-52); AST/SGOT 43 U/L (14-36); BLOOD UREA NITROGEN 14 mg/dl (7-17); GFR AFRICAN-AMERICAN > 60; GFR NON-AFRICAN AMERICAN > 60
[2017-09-29] MEDS ORDERED: Potassium Chloride 20 mEq/15 ml LIQ UD PO ONE (14:55)
[2017-09-29] MEDS ORDERED: Sodium Chloride 0.9% 1,000 ML IV ONE (15:00)
[2017-09-29] MEDS ORDERED: Multivitamin (MVI) 10 ML, Thiamine 100 MG, Folic Acid 1 MG in Sodium Chloride 0.9% 1,00... IV ONE (15:44)
[2017-09-29 16:29] LABS: BARBITURATES, UR NEGATIVE (NEGATIVE); BENZODIAZEPINES, UR NEGATIVE (NEGATIVE); OPIATES, UR NEGATIVE (NEGATIVE); PHENCYCLIDINE, UR NEGATIVE (NEGATIVE)
--- NOTE | 2017-09-29 17:04 | RAD ---
HISTORY: cough/CP COMPARISON: 04/11/2017. TECHNIQUE: Chest PA and lateral FINDINGS: LUNGS: No active pulmonary disease. PLEURA: No significant pleural effusion identified. No pneumothorax apparent. CARDIOVASCULAR: Normal. OSSEOUS STRUCTURES: No significant abnormalities. VISUALIZED UPPER ABDOMEN: Normal. OTHER FINDINGS: None. IMPRESSION: No active disease. No significant interval change compared to the prior examination(s).
[2017-09-29] MEDS ORDERED: methylPREDNISolone 125 MG in Sodium Chloride 0.9% 50 ML IVPB ONE (17:25)
--- NOTE | 2017-09-29 20:03 | ED PDOC ---
- Laboratory Results Result Diagrams: 09/29/17 13:33 09/29/17 13:33 - ECG O2 Sat by Pulse Oximetry: 95 - Progress Re-evaluation Time: 20:04 Condition: Improved Disposition Counseled Patient/Family Regarding: Diagnosis, Need For Followup - Clinical Impression Clinical Impression: COPD (chronic obstructive pulmonary disease), Alcohol abuse with uncomplicated intoxication - POA Present On Arrival: None - Disposition Referrals: [facility] [Outside] Disposition: Routine/Home Disposition Time: 20:02 Condition: FAIR Prescriptions: Albuterol HFA [Ventolin HFA 90 mcg/actuation (8 g)] 2 puff IH Q4H #1 puff Instructions: Alcohol Intoxication (ED), COPD (Chronic Obstructive Pulmonary Disease) (ED) Forms: [employer] (L[place]uanian)
== END 2017-09-29 20:40 | disposition home or self-care (01) ==
LOC: H.ER 12:02
DX: J44.9 Chronic obstructive pulmonary disease, unspecified (principal); F10.120 Alcohol abuse with intoxication, uncomplicated; I10 Essential (primary) hypertension; E78.00 Pure hypercholesterolemia, unspecified
CPT/HCPCS: 71046; 80053; 80320; 80324; 80345; 80346; 80349; 80353; 80358; 80361; 82948; 83880; 83992; 84484; 85027; 94640; 96374; 96375; 99283; J0456; J0696; J2930; J3411; J7040; J7050

== ENCOUNTER 2017-10-07 16:11 | Emergency (ER) | payer MEDICAID ==
[2017-10-07 16:11] VITALS: BMI 28.3
[2017-10-07] MEDS ORDERED: Albuterol-Ipratrop 3 mg / 0.5 (3 ml) UD INH STA (16:42)
[2017-10-07] MEDS ORDERED: Albuterol-Ipratrop 3 mg / 0.5 (3 ml) UD ONE (16:51)
[2017-10-07 17:00] LABS: BASO # 0.1 K/uL (0.0-0.2); BASO % 1.9 % (0.0-2.0); EOS % 0.5 % (0.0-4.0); HEMOGLOBIN 14.3 g/dL (12.0-16.0); LYMPH % 27.1 % (20.0-40.0); MEAN CELL VOLUME 97.3 fl (81.0-99.0); MEAN CORPUSCULAR HGB CONC 32.9 g/dL (33.0-37.0); MEAN PLATELET VOLUME 8.7 fl (7.2-11.7); MONO # 0.8 K/uL (0.0-0.8); NEUT # 4.4 K/uL (1.8-7.0); NEUT % 59.5 % (50.0-75.0); RBC 4.47 Mil/uL (3.80-5.20); RED CELL DISTRIBUTION WIDTH 14.9 % (11.5-14.5); WHITE BLOOD COUNT 7.4 K/uL (4.8-10.8)
--- NOTE | 2017-10-07 17:07 | ED PDOC ---
HPI: SOB/CHF/COPD Time Seen by Provider: 10/07/17 16:26 Chief Complaint (Nursing): Flu-like Symptoms Chief Complaint (Provider): Cough, Wheezing History Per: Patient History/Exam Limitations: no limitations Onset/Duration Of Symptoms: Days (x 1 week) Current Symptoms Are (Timing): Still Present Initiating Event: Out Of Medications Additional Complaint(s): 52 year old female with a past medial history of asthma presents to the ED with cough, wheezing, and difficulty breathing for 1 week. States cough is productive of white phlegm. Denies any associated chest pain or fever. Patient reports she ran out of her Albuterol pump yesterday. Now complains of wheezing intermittently. Her last admission was in early September of this year. No history of admission to ICU or of previous intubations. Of note, patient is a chronic alcoholic, and states her last drink was today. PMD: Dr. Johnson Past Medical History Reviewed: Historical Data, Nursing Documentation, Vital Signs Vital Signs: Last Vital Signs Temp 97.4 F L 10/07/17 16:12 Pulse 87 10/07/17 17:47 Resp 18 10/07/17 16:12 BP 128/67 10/07/17 16:12 Pulse Ox 97 10/07/17 17:47 - Medical History PMH: Asthma, COPD, HTN, Hypercholesterolemia, Pneumonia, Seizures Denies: HIV, Chronic Kidney Disease, Sexually Transmitted Disease Other PMH: Chronic alcoholism - Surgical History Surgical History: No Surg Hx - Family History Family History: States: Unknown Family Hx - Immunization History Hx Tetanus Toxoid Vaccination: No Hx Influenza Vaccination: Yes (2013) Hx Pneumococcal Vaccination: Yes - Home Medications Home Medications: Ambulatory Orders Medication Instructions Recorded Tiotropium [Spiriva] 18 mcg IH DAILY 05/10/16 Montelukast [Singulair] 10 mg PO DAILY 01/22/17 Fluticasone/Vilanterol [Breo 1 each IH DAILY #1 blst.w.dev 01/28/17 Ellipta 100-25 Mcg INH] Albuterol HFA [Ventolin HFA 90 0.09 mg IH Q6 #1 unit 08/20/17 mcg/actuation (8 g)] Albuterol HFA [Ventolin HFA 90 2 puff IH Q4H #1 puff 09/29/17 mcg/actuation (8 g)] Albuterol HFA [Ventolin HFA 90 2 puff IH [id number] #1 puff 10/07/17 mcg/actuation (8 g)] Fluticasone/Salmeterol 250/50 1 puff IH BID #1 inh 10/07/17 [Advair Diskus 250/50] Prednisone 50 mg PO DAILY #5 tablet 10/07/17 - Allergies Allergies/Adverse Reactions: Allergies Allergy/AdvReac Type Severity Reaction Status Date / Time apple Allergy Severe ITCHING Verified 09/25/17 15:27 carrot Allergy Severe RASH Verified 09/25/17 15:27 peach Allergy Severe ITCHING Verified 09/25/17 15:27 peanut Allergy Severe ITCHING Verified 09/25/17 15:27 plum Allergy Severe ITCHING Verified 09/25/17 15:27 Review of Systems ROS Statement: Except As Marked, All Systems Reviewed And Found Negative Constitutional: Negative for: Fever, Chills Cardiovascular: Negative for: Chest Pain Respiratory: Positive for: Cough, Shortness of Breath, Sputum, Wheezing Physical Exam - Reviewed Nursing Documentation Reviewed: Yes Vital Signs Reviewed: Yes - Physical Exam Appears: Positive for: Non-toxic, No Acute Distress Head Exam: Positive for: ATRAUMATIC, NORMOCEPHALIC Skin: Positive for: Normal Color, Warm, Dry Eye Exam: Positive for: EOMI, Normal appearance, PERRL ENT: Positive for: Normal ENT Inspection, Pharynx Is (clear), TM Is/Are (normal) Neck: Positive for: Normal, Painless ROM, Supple Cardiovascular/Chest: Positive for: Regular Rate, Rhythm. Negative for: Murmur Respiratory: Positive for: Wheezing (Occasional wheezing bilaterally in lungs). Negative for: Respiratory Distress Gastrointestinal/Abdominal: Positive for: Normal Exam, Soft. Negative for: Tenderness Back: Positive for: Normal Inspection. Negative for: L CVA Tenderness, R CVA Tenderness, Vertebral Tenderness Extremity: Positive for: Normal ROM. Negative for: Pedal Edema, Deformity Neurologic/Psych: Positive for: Alert, Oriented (x3) - Laboratory Results Result Diagrams: 10/07/17 16:55 10/07/17 16:55 - ECG ECG Rhythm: Positive for: Normal QRS, Sinus Rhythm, Nonspecific Changes. Negative for: ST/T Changes Rate: 87 O2 Sat by Pulse Oximetry: 97 (RA) Pulse Ox Interpretation: Normal - Radiology X-Ray: Interpreted by Me, Viewed By Me X-Ray Interpretation: No Acute Disease Medical Decision Making Medical Decision Making: Initial Impression: Asthma exacerbation Time: 16:42 Initial Plan: * EKG * Alcohol serum * BMP * Troponin I * CBC * Chest x-ray * Duoneb 3ml x1 * Solu-medrol 125mg IVP * Peak Flow pre/post treatment * Reevaluation Labs reviewed: Troponin is negative. Alcohol level is 327. Reviewed chest x-ray, which is unremarkable. 2nd Impression: Alcohol intoxication Time: 18:00 On reevaluation, lungs are clear. Patient will be signed out to Dr. Jeb Fregoso, pending clinical sobriety. Scribe Attestation: Documented by Bhavani Ansari, acting as a scribe for Barrera Ernandez MD Provider Scribe Attestation: All medical record entries made by the Scribe were at my direction and personally dictated by me. I have reviewed the chart and agree that the record accurately reflects my personal performance of the history, physical exam, medical decision making, and the department course for this patient. I have also personally directed, reviewed, and agree with the discharge instructions and disposition. Disposition - Clinical Impression Clinical Impression: COPD exacerbation, Asthma with COPD with exacerbation Counseled Patient/Family Regarding: Studies Performed - Disposition Referrals: Brijesh Johnson MD [Family Provider] - Disposition: Transfer of Care Disposition Time: 18:00 Condition: GOOD Prescriptions: Albuterol HFA [Ventolin HFA 90 mcg/actuation (8 g)] 2 puff IH [id number] #1 puff Fluticasone/Salmeterol 250/50 [Advair Diskus 250/50] 1 puff IH BID #1 inh Prednisone 50 mg PO DAILY #5 tablet Instructions: Asthma (ED) Patient Signed Over To: Jeb Fregoso (pending sobriety) - POA Present On Arrival: None
[2017-10-07 17:40] LABS: BLOOD UREA NITROGEN 11 mg/dl (7-17); CALCIUM 8.1 mg/dL (8.4-10.2); GFR AFRICAN-AMERICAN > 60; GFR NON-AFRICAN AMERICAN > 60
--- NOTE | 2017-10-07 18:04 | ED PDOC ---
- Laboratory Results Result Diagrams: 10/07/17 16:55 10/07/17 16:55 - ECG O2 Sat by Pulse Oximetry: 97 (RA) - Progress Re-evaluation Time: 21:55 Condition: Improved (awake alert oriented x 3 no focal deficits) Disposition - Clinical Impression Clinical Impression: COPD exacerbation, Asthma with COPD with exacerbation, Alcohol intoxication - POA Present On Arrival: None - Disposition Referrals: Brijesh Johnson MD [Family Provider] - Disposition: Routine/Home Disposition Time: 21:55 Condition: GOOD Prescriptions: Albuterol HFA [Ventolin HFA 90 mcg/actuation (8 g)] 2 puff IH [id number] #1 puff Fluticasone/Salmeterol 250/50 [Advair Diskus 250/50] 1 puff IH BID #1 inh Prednisone 50 mg PO DAILY #5 tablet Instructions: Asthma (ED)
--- NOTE | 2017-10-07 18:20 | RAD ---
PROCEDURE: CHEST RADIOGRAPH, 1 VIEW HISTORY: dyspnea COMPARISON: 09/29/2017 FINDINGS: LUNGS: Clear. PLEURA: No pneumothorax or pleural fluid seen. CARDIOVASCULAR: No radiographic findings to suggest acute or significant cardiovascular disease. OSSEOUS STRUCTURES: No significant abnormalities. VISUALIZED UPPER ABDOMEN: Normal. OTHER FINDINGS: None. IMPRESSION: No active disease. No acute/significant interval changes.
[2017-10-07 19:50] VITALS: BP 130/70; PULSE 89; RESP 20; TEMP 97.9
[2017-10-07 21:56] VITALS: O2SAT 97
--- NOTE | 2017-10-08 08:46 | CARD ---
APPROVED REPORT EKG Measurement Heart [id number] <Conclusion> Normal sinus rhythm Possible Left atrial enlargement Prolonged QT Abnormal ECG
== END 2017-10-08 00:07 | disposition home or self-care (01) ==
LOC: H.ER 16:11
DX: J44.1 Chronic obstructive pulmonary disease with (acute) exacerbation (principal); E78.00 Pure hypercholesterolemia, unspecified; I10 Essential (primary) hypertension
CPT/HCPCS: 71045; 80048; 80320; 82948; 84484; 85025; 93005; 96374; 99283; J2930

== ENCOUNTER 2017-10-20 15:50 | Emergency (ER) | payer MEDICAID ==
[2017-10-20 15:50] VITALS: BMI 28.3
[2017-10-20 16:10] VITALS: RESP 20
[2017-10-20] MEDS ORDERED: Naproxen 500 MG TAB PO STA (16:13)
[2017-10-20] MEDS ORDERED: Naproxen 500 MG TAB PO ONE (16:49)
[2017-10-20] MEDS: Albuterol-Ipratrop 3 mg / 0.5 (3 ml) UD IH SCH ×4 (17:08→18:42)
--- NOTE | 2017-10-20 17:55 | ED PDOC ---
Lower Extremity Pain/Injury Time Seen by Provider: 10/20/17 16:13 Chief Complaint (Nursing): Lower Extremity Problem/Injury Chief Complaint (Provider): Ankle pain History Per: Patient History/Exam Limitations: no limitations Current Symptoms Are (Timing): Still Present Additional Complaint(s): Patient reports twisting injury of the right ankle, while walking in the park 2 hours ago. Reports she had an asthma attack just prior which caused her to trip and fall. Patient now complains of pain and swelling; Otherwise: (-) knee pain , (-) other injury. On further discussion, patient reports 3 day history of cough, with no fever. Also complains of rash to the epigastrium. Otherwise: (- ) sore throat, (-) abdominal pain, (-) N/V/D, (-) chills, (-) chest pain. PMD: Dr. Johnson Past Medical History Reviewed: Historical Data, Nursing Documentation, Vital Signs Vital Signs: Last Vital Signs Temp 97.3 F L 10/20/17 16:08 Pulse 97 H 10/20/17 16:08 Resp 20 10/20/17 16:08 BP 131/65 10/20/17 16:08 Pulse Ox 96 10/20/17 16:08 - Medical History PMH: Asthma, COPD, HTN, Hypercholesterolemia, Pneumonia, Seizures Denies: HIV, Chronic Kidney Disease, Sexually Transmitted Disease - Family History Family History: States: Unknown Family Hx - Immunization History Hx Tetanus Toxoid Vaccination: No Hx Influenza Vaccination: Yes (2013) Hx Pneumococcal Vaccination: Yes - Home Medications Home Medications: Ambulatory Orders Medication Instructions Recorded Tiotropium [Spiriva] 18 mcg IH DAILY 05/10/16 Montelukast [Singulair] 10 mg PO DAILY 01/22/17 Fluticasone/Vilanterol [Breo 1 each IH DAILY #1 blst.w.dev 01/28/17 Ellipta 100-25 Mcg INH] Albuterol HFA [Ventolin HFA 90 0.09 mg IH Q6 #1 unit 08/20/17 mcg/actuation (8 g)] Albuterol HFA [Ventolin HFA 90 2 puff IH Q4H #1 puff 09/29/17 mcg/actuation (8 g)] Albuterol HFA [Ventolin HFA 90 2 puff IH [id number] #1 puff 10/07/17 mcg/actuation (8 g)] Fluticasone/Salmeterol 250/50 1 puff IH BID #1 inh 10/07/17 [Advair Diskus 250/50] Prednisone 50 mg PO DAILY #5 tablet 10/07/17 Albuterol HFA [Ventolin HFA 90 2 puff IH [id number] #1 puff 10/20/17 mcg/actuation (8 g)] Hydrocortisone Emmie 0.2% Cr 1 applic TOP BID #1 tube 10/20/17 [Westcort] Ibuprofen [Motrin Tab] 600 mg PO QID PRN #20 tab 10/20/17 predniSONE [predniSONE Tab] 40 mg PO DAILY #8 tab 10/20/17 - Allergies Allergies/Adverse Reactions: Allergies Allergy/AdvReac Type Severity Reaction Status Date / Time apple Allergy Severe ITCHING Verified 10/20/17 16:06 carrot Allergy Severe RASH Verified 10/20/17 16:06 peach Allergy Severe ITCHING Verified 10/20/17 16:06 peanut Allergy Severe ITCHING Verified 10/20/17 16:06 plum Allergy Severe ITCHING Verified 10/20/17 16:06 Review of Systems ROS Statement: Except As Marked, All Systems Reviewed And Found Negative Constitutional: Negative for: Fever, Chills Cardiovascular: Negative for: Chest Pain Respiratory: Positive for: Cough, Wheezing Gastrointestinal: Negative for: Nausea, Vomiting, Abdominal Pain, Diarrhea Musculoskeletal: Positive for: Foot Pain (right ankle) Skin: Positive for: Rash Neurological: Negative for: Weakness, Numbness Physical Exam - Reviewed Nursing Documentation Reviewed: Yes Vital Signs Reviewed: Yes - Physical Exam Comments: GENERAL APPEARANCE: Patient is awake, alert, oriented x 3, in no acute distress. SKIN: Warm, dry; (+) Erythematous rash to epigastric area. EYES: (-) conjunctival pallor. ENMT: Mucous membranes moist. Airway patent: (-) stridor. Pharynx: (-) swelling, (-) erythema. NECK: (-) tenderness, (-) stiffness, (-) lymphadenopathy. CHEST AND RESPIRATORY: (+) bilateral wheezing; (+) rhonchi, (-) rales, (-) rub ; breath sounds equal bilaterally. HEART AND CARDIOVASCULAR: (-) irregularity; (-) murmur, (-) gallop. ABDOMEN AND GI: Soft; (-) tenderness. LOWER EXTREMITY: Ankle: (+) mild swelling and mild tenderness of the medial aspect of the right ankle; (+) limited range of motion secondary to pain. Achilles tendon intact and non-tender. Knee and foot: (-) edema, (-) tenderness. CARDIOVASCULAR: (+) distal pulse. NEURO AND PSYCH: Mental status as above; (-) focal findings. (+) distal sensation. - ECG O2 Sat by Pulse Oximetry: 96 (RA) Pulse Ox Interpretation: Normal Medical Decision Making Medical Decision Making: Clinical Impression: Ankle pain, Asthma exacerbation Time: 16:13 Initial Plan: --X-Ray Right Ankle --Naproxen 500 mg PO --Duoneb treatment x1 --Prednisone 40 mg PO --Peak Flow pre/post treatment --Reevaluation XR ANKLE: no fracture, no dislocation, as read by KATHRIN. Time: 17:52 On reevaluation, patient reports improvement of asthma. However, on re- examination patient continues to have scattered rhonchi and wheezing. Patient reports having a cough but no fever for the past few days. Also complains of rash to epigastric area for 2 weeks. Will give 2 duoneb, obtain CXR, and reevaluate. CXR: NAD, as read by KATHRIN. Time: 19:47 On reevaluation, patient is resting comfortably in the ER, speaking in full sentences, breathing is easy and unlabored. On re-examination, lungs sound clear to auscultation. Based on history, exam and diagnostic results plan will be for outpt f/u with the clinic. Isaias wrap applied to the R ankle. Advised RICE to the R ankle. Advised to follow up with the clinic in 1-2 days without fail. Advised to take medication as prescribed. Return to the emergency room at any time for any new or worsening symptoms. Patient states she fully agrees with and understands discharge instructions. States that she agrees with the plan and disposition. Verbalized and repeated discharge instructions and plan. I have given the patient opportunity to ask any additional questions. Scribe Attestation: Documented by Bhavani Ansari, acting as a scribe for Maira Zurita PA-C Provider Scribe Attestation: All medical record entries made by the Scribe were at my direction and personally dictated by me. I have reviewed the chart and agree that the record accurately reflects my personal performance of the history, physical exam, medical decision making, and the department course for this patient. I have also personally directed, reviewed, and agree with the discharge instructions and disposition. Disposition - Clinical Impression Clinical Impression: Asthma exacerbation, Ankle injury - Patient ED Disposition Is Patient to be Admitted: No Counseled Patient/Family Regarding: Studies Performed, Diagnosis, Need For Followup, Rx Given - Disposition Referrals: [facility] [Outside] Disposition: Routine/Home Disposition Time: 19:30 Condition: STABLE Additional Instructions: Thank you for letting us take care of you today. You were treated for asthma exacerbation, ankle injury. The emergency medical care you received today was directed at your acute symptoms. If you were prescribed any medication, please fill it and take as directed. It may take several days for your symptoms to resolve. Return to the Emergency Department if your symptoms worsen, do not improve, or if you have any other problems. Please call one of the physicians/clinics you have been referred to that are listed on the Patient Visit Information form that is included in your discharge packet. Bring any paperwork you were given at discharge with you along with any medications you are taking to your follow up visit. Our treatment cannot replace ongoing medical care by a primary care provider (PCP) outside of the emergency department. Thank you for allowing the [facility] team to be part of your care today. 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
--- NOTE | 2017-10-20 18:24 | RAD ---
PROCEDURE: Right Ankle Radiographs. HISTORY: pain COMPARISON: None FINDINGS: BONES: No acute fracture or destructive bony lesion identified. JOINTS: Normal. No osteoarthritis. Ankle mortise maintained. Talar dome intact SOFT TISSUES: Normal. OTHER FINDINGS: None. IMPRESSION: Remarkable right ankle radiographs.
[2017-10-20 20:45] VITALS: BP 125/66; PULSE 89; TEMP 98.2; O2SAT 95
--- NOTE | 2017-10-21 09:10 | RAD ---
HISTORY: cough COMPARISON: Chest radiograph dated 10/07/2017. TECHNIQUE: Chest PA and lateral FINDINGS: LUNGS: No active pulmonary disease. PLEURA: No significant pleural effusion identified. No pneumothorax apparent. CARDIOVASCULAR: Atherosclerotic aortic calcifications. Cardiomediastinal silhouette within normal limits. OSSEOUS STRUCTURES: Unchanged. VISUALIZED UPPER ABDOMEN: Normal. OTHER FINDINGS: None. IMPRESSION: No active disease.
== END 2017-10-20 20:46 | disposition home or self-care (01) ==
LOC: H.ER 15:50
DX: S93.401A Sprain of unspecified ligament of right ankle, initial encounter (principal); W19.XXXA Unspecified fall, initial encounter; Y92.830 Public park as the place of occurrence of the external cause; J45.901 Unspecified asthma with (acute) exacerbation; E78.00 Pure hypercholesterolemia, unspecified; I10 Essential (primary) hypertension; J44.9 Chronic obstructive pulmonary disease, unspecified

== ENCOUNTER 2017-10-29 19:11 | Emergency (ER) | payer MEDICAID ==
[2017-10-29 19:12] VITALS: BMI 28.3
[2017-10-29] MEDS ORDERED: Albuterol-Ipratrop 3 mg / 0.5 (3 ml) UD INH STA (21:08)
[2017-10-29] MEDS ORDERED: Albuterol-Ipratrop 3 mg / 0.5 (3 ml) UD IH STA (21:08)
--- NOTE | 2017-10-29 21:12 | ED PDOC ---
HPI: CCC, URI, Sore Throat Time Seen by Provider: 10/29/17 20:41 Chief Complaint (Nursing): Cough, Cold, Congestion Chief Complaint (Provider): Cough History Per: Patient History/Exam Limitations: no limitations Additional Complaint(s): Pt. with cough and wheezes today. States feels just like her asthma. Frequent ER visits for the same. Pt. with no chest pain, weakness, headaches, dizziness , abd pain, nausea, vomit. Homeless and has no meds. Past Medical History Reviewed: Historical Data, Nursing Documentation, Vital Signs Vital Signs: Last Vital Signs Temp 98.6 F 10/29/17 20:30 Pulse 115 H 10/29/17 20:30 Resp 20 10/29/17 20:30 BP 122/81 10/29/17 20:30 Pulse Ox - Medical History PMH: Asthma, COPD, HTN, Hypercholesterolemia, Pneumonia, Seizures Denies: HIV, Chronic Kidney Disease, Sexually Transmitted Disease - Family History Family History: States: Unknown Family Hx - Immunization History Hx Tetanus Toxoid Vaccination: No Hx Influenza Vaccination: Yes (2013) Hx Pneumococcal Vaccination: Yes - Home Medications Home Medications: Ambulatory Orders Medication Instructions Recorded Tiotropium [Spiriva] 18 mcg IH DAILY 05/10/16 Montelukast [Singulair] 10 mg PO DAILY 01/22/17 Fluticasone/Vilanterol [Breo 1 each IH DAILY #1 blst.w.dev 01/28/17 Ellipta 100-25 Mcg INH] Albuterol HFA [Ventolin HFA 90 0.09 mg IH Q6 #1 unit 08/20/17 mcg/actuation (8 g)] Albuterol HFA [Ventolin HFA 90 2 puff IH Q4H #1 puff 09/29/17 mcg/actuation (8 g)] Albuterol HFA [Ventolin HFA 90 2 puff IH [id number] #1 puff 10/07/17 mcg/actuation (8 g)] Fluticasone/Salmeterol 250/50 1 puff IH BID #1 inh 10/07/17 [Advair Diskus 250/50] Prednisone 50 mg PO DAILY #5 tablet 10/07/17 Albuterol HFA [Ventolin HFA 90 2 puff IH [id number] #1 puff 10/20/17 mcg/actuation (8 g)] Hydrocortisone Emmie 0.2% Cr 1 applic TOP BID #1 tube 10/20/17 [Westcort] Ibuprofen [Motrin Tab] 600 mg PO QID PRN #20 tab 10/20/17 predniSONE [predniSONE Tab] 40 mg PO DAILY #8 tab 10/20/17 Albuterol Sulfate [Proair Hfa] 0.09 mg IH Q6H PRN #2 inh 10/29/17 predniSONE [predniSONE Tab] 20 mg PO BID 5 Days tab 10/29/17 - Allergies Allergies/Adverse Reactions: Allergies Allergy/AdvReac Type Severity Reaction Status Date / Time apple Allergy Severe ITCHING Verified 10/20/17 16:06 carrot Allergy Severe RASH Verified 10/20/17 16:06 peach Allergy Severe ITCHING Verified 10/20/17 16:06 peanut Allergy Severe ITCHING Verified 10/20/17 16:06 plum Allergy Severe ITCHING Verified 10/20/17 16:06 Review of Systems Constitutional: Negative for: Fever, Chills, Weakness ENT: Positive for: Nose Pain, Nose Discharge, Nose Congestion Cardiovascular: Negative for: Chest Pain, Edema, Light Headedness Respiratory: Positive for: Cough, Shortness of Breath, Wheezing Gastrointestinal: Negative for: Nausea, Vomiting, Abdominal Pain Musculoskeletal: Negative for: Neck Pain Neurological: Negative for: Weakness Physical Exam - Reviewed Nursing Documentation Reviewed: Yes Vital Signs Reviewed: Yes - Physical Exam Appears: Positive for: Non-toxic, No Acute Distress Head Exam: Positive for: ATRAUMATIC, NORMAL INSPECTION, NORMOCEPHALIC Skin: Positive for: Normal Color, Warm, DRY Eye Exam: Positive for: EOMI, Normal appearance, PERRL ENT: Positive for: Nasal Congestion Neck: Positive for: Normal, Painless ROM Cardiovascular/Chest: Positive for: Regular Rate, Rhythm Respiratory: Positive for: Wheezing (b/l mild). Negative for: Accessory Muscle Use Gastrointestinal/Abdominal: Positive for: Normal Exam, Bowel Sounds, Soft. Negative for: Tenderness Back: Positive for: Normal Inspection. Negative for: L CVA Tenderness, R CVA Tenderness Extremity: Positive for: Normal ROM. Negative for: Tenderness, Pedal Edema Neurologic/Psych: Positive for: Alert, Oriented - Progress ED Course And Treament: 1001: Stable. AAOx3. Pain free. Tolerated PO. Disposition - Clinical Impression Clinical Impression: Asthma - Patient ED Disposition Is Patient to be Admitted: No Counseled Patient/Family Regarding: Studies Performed, Diagnosis, Need For Followup, Rx Given - Disposition Referrals: [facility] [Outside] - 10/31/17 Disposition: Routine/Home Disposition Time: 22:02 Condition: STABLE Additional Instructions: Return if not better in 3 days. Prescriptions: Albuterol Sulfate [Proair Hfa] 0.09 mg IH Q6H PRN #2 inh PRN Reason: Wheezing predniSONE [predniSONE Tab] 20 mg PO BID 5 Days tab Instructions: Asthma in Adults
[2017-10-29] MEDS ORDERED: Albuterol-Ipratrop 3 mg / 0.5 (3 ml) UD ONE (21:21)
[2017-10-29 22:36] VITALS: BP 129/81; PULSE 71; RESP 16; TEMP 98; O2SAT 98
== END 2017-10-29 22:36 | disposition home or self-care (01) ==
LOC: H.ER 19:11
DX: J45.909 Unspecified asthma, uncomplicated (principal); E78.00 Pure hypercholesterolemia, unspecified; I10 Essential (primary) hypertension; Z59.0 Homelessness; J44.9 Chronic obstructive pulmonary disease, unspecified

== ENCOUNTER 2017-11-23 00:57 | Emergency (ER) | payer MEDICAID ==
[2017-11-23 00:57] VITALS: BMI 28.3
[2017-11-23 01:27] VITALS: BP 125/85; PULSE 108; RESP 20; TEMP 98.1; O2SAT 95
[2017-11-23] MEDS ORDERED: Albuterol-Ipratrop 3 mg / 0.5 (3 ml) UD INH STA ×2 (01:39→01:48)
--- NOTE | 2017-11-23 02:02 | ED PDOC ---
HPI: Asthma Time Seen by Provider: 11/23/17 01:08 Chief Complaint (Nursing): Respiratory Distress History Per: Patient History/Exam Limitations: no limitations Onset/Duration Of Symptoms: Hrs Current Symptoms Are (Timing): Still Present Associated Symptoms: Dyspnea. denies: Cough, Sputum Production, Hemoptysis, Fever, Chest Pain Precipitating Factors: Weather Change, Allergies Severity: Moderate Additional History Per: Family Additional Complaint(s): CC: asthma exacerbation HPI: 52 y/o woman w/ pmh of moderate persistent asthma presents to ED for acute asthma exacerbation. Patient was walking around and shopping when she became short of breath. Patient reports symptoms started in the morning but did not get relief from her rescue inhaler after multiple pumps. Patient adherent to her daily asthma medication of symbicort, singulair, and spiriva. Patient reports nasal congestion from seasonal allergies. Patient denies abdominal pain , nausea, vomiting, diarrhea, dysuria, or fever. PMD: Dr. Min ([facility]) PMH: moderate persistent asthma, COPD meds: ventolin, symbicort, spiriva, singulair allergies: apple, carrot, peach, peanut, plum, seasonal PSH: none Fam: mother 15 yrs ago at age 65 from complications associated w/ COPD SOC: former smoker (quit 09/2017), smoked 1 pack/day for 37 yrs, denies alcohol and drugs ROS: 12 points assessed and negative unless otherwise reported in HPI - Asthma History Date Of Last ED Visit: 10/29/17 Medication Use: Daily Rescue Medications: See Home Medication List Control Medications: See Home Medication List Past Medical History Vital Signs: Last Vital Signs Temp 98.1 F 11/23/17 01:11 Pulse 108 H 11/23/17 01:11 Resp 20 11/23/17 01:11 BP 125/85 11/23/17 01:11 Pulse Ox 95 11/23/17 01:11 - Medical History PMH: Asthma, COPD, HTN, Hypercholesterolemia, Pneumonia, Seizures Denies: HIV, Chronic Kidney Disease, Sexually Transmitted Disease - Family History Family History: States: Unknown Family Hx - Social History Current smoker - smoking cessation education provided: No (quit 09/2017) SMOKER/PACKS PER DAY:: 1 (37 years) Alcohol: None Drugs: Denies - Immunization History Hx Tetanus Toxoid Vaccination: No Hx Influenza Vaccination: Yes (2013) Hx Pneumococcal Vaccination: Yes - Home Medications Home Medications: Ambulatory Orders Medication Instructions Recorded Tiotropium [Spiriva] 18 mcg IH DAILY 05/10/16 Montelukast [Singulair] 10 mg PO DAILY 01/22/17 Fluticasone/Vilanterol [Breo 1 each IH DAILY #1 blst.w.dev 01/28/17 Ellipta 100-25 Mcg INH] Albuterol HFA [Ventolin HFA 90 0.09 mg IH Q6 #1 unit 08/20/17 mcg/actuation (8 g)] Albuterol HFA [Ventolin HFA 90 2 puff IH Q4H #1 puff 09/29/17 mcg/actuation (8 g)] Albuterol HFA [Ventolin HFA 90 2 puff IH [id number] #1 puff 10/07/17 mcg/actuation (8 g)] Fluticasone/Salmeterol 250/50 1 puff IH BID #1 inh 10/07/17 [Advair Diskus 250/50] Prednisone 50 mg PO DAILY #5 tablet 10/07/17 Albuterol HFA [Ventolin HFA 90 2 puff IH [id number] #1 puff 10/20/17 mcg/actuation (8 g)] Hydrocortisone Emmie 0.2% Cr 1 applic TOP BID #1 tube 10/20/17 [Westcort] Ibuprofen [Motrin Tab] 600 mg PO QID PRN #20 tab 10/20/17 predniSONE [predniSONE Tab] 40 mg PO DAILY #8 tab 10/20/17 Albuterol Sulfate [Proair Hfa] 0.09 mg IH Q6H PRN #2 inh 10/29/17 predniSONE [predniSONE Tab] 20 mg PO BID 5 Days tab 10/29/17 predniSONE [predniSONE Tab] 60 mg PO QAM #12 tab 11/23/17 - Allergies Allergies/Adverse Reactions: Allergies Allergy/AdvReac Type Severity Reaction Status Date / Time apple Allergy Severe ITCHING Verified 11/23/17 01:25 carrot Allergy Severe RASH Verified 11/23/17 01:25 peach Allergy Severe ITCHING Verified 11/23/17 01:25 peanut Allergy Severe ITCHING Verified 11/23/17 01:25 plum Allergy Severe ITCHING Verified 03/25/18 01:25 Review of Systems ROS Statement: Except As Marked, All Systems Reviewed And Found Negative Constitutional: Negative for: Fever, Sweats, Weakness Eyes: Negative for: Pain ENT: Negative for: Ear Pain, Throat Pain Cardiovascular: Negative for: Palpitations, Edema, Light Headedness Respiratory: Positive for: Shortness of Breath, SOB with Exertion, Pleuritic Pain, Wheezing. Negative for: Cough, Hemoptysis, Sputum Gastrointestinal: Negative for: Nausea, Vomiting, Abdominal Pain, Diarrhea, Melena, Hematochezia Genitourinary Female: Negative for: Dysuria, Frequency Skin: Negative for: Rash Neurological: Negative for: Headache Physical Exam - Reviewed Nursing Documentation Reviewed: Yes Vital Signs Reviewed: Yes - Physical Exam Appears: Positive for: Non-toxic, No Acute Distress Head Exam: Positive for: ATRAUMATIC, NORMAL INSPECTION, NORMOCEPHALIC Skin: Positive for: Normal Color, Warm, Dry. Negative for: Rash Eye Exam: Positive for: Normal appearance Neck: Positive for: Normal, Painless ROM, Supple Cardiovascular/Chest: Positive for: Regular Rate, Rhythm, Chest Non Tender, Tachycardia. Negative for: Edema, JVD, Bradycardia Respiratory: Positive for: Wheezing (inspiratory and expiratory). Negative for : Accessory Muscle Use (speaking in full sentences uninterrupted), Crackles, Rales, Rhonchi, Respiratory Distress Pulses-Carotid (L): 2+ Pulses-Carotid (R): 2+ Pulses-Radial (L): 2+ Pulses-Radial (R): 2+ Gastrointestinal/Abdominal: Positive for: Normal Exam, Bowel Sounds. Negative for: Soft, Tenderness Extremity: Positive for: Normal ROM. Negative for: Tenderness, Pedal Edema, Calf Tenderness Neurologic/Psych: Positive for: Alert, Oriented - ECG O2 Sat by Pulse Oximetry: 95 Medical Decision Making Medical Decision Makin52 y/o woman w/ pmh of moderate persistent asthma presents to ED for acute asthma exacerbation x2 Duonebs prednisone 60 mg PO once peak flow pre/post treatment re-evaluation improved after treatment Dispo: DC home, prednisone 60 mg PO daily for 12 days, follow up w/ PMD Disposition - Clinical Impression Clinical Impression: Asthma exacerbation, Shortness of breath - Patient ED Disposition Is Patient to be Admitted: No Discussed With : Julio Murrell Doctor Will See Patient In The: Office Counseled Patient/Family Regarding: Studies Performed, Diagnosis, Need For Followup - Disposition Referrals: Brijesh Johnson MD [Family Provider] - Disposition: Routine/Home Disposition Time: 03:37 Condition: IMPROVED Prescriptions: predniSONE [predniSONE Tab] 60 mg PO QAM #12 tab Instructions: Chronic Obstructive Pulmonary Disease (COPD), Including Emphysema , Asthma in Adults Forms: [employer] (Turkmen) - POA Present On Arrival: None
[2017-11-23] MEDS ORDERED: Albuterol-Ipratrop 3 mg / 0.5 (3 ml) UD ONE (02:05)
== END 2017-11-23 03:15 | disposition home or self-care (01) ==
LOC: H.ER 00:57
DX: J45.40 Moderate persistent asthma, uncomplicated (principal); J44.9 Chronic obstructive pulmonary disease, unspecified; I10 Essential (primary) hypertension; E78.00 Pure hypercholesterolemia, unspecified; F17.210 Nicotine dependence, cigarettes, uncomplicated

== ENCOUNTER 2017-12-17 19:50 | Emergency (ER) | payer MEDICAID ==
[2017-12-17 19:50] VITALS: BMI 28.3
[2017-12-17 20:00] VITALS: RESP 16
[2017-12-17] MEDS ORDERED: Albuterol-Ipratrop 3 mg / 0.5 (3 ml) UD INH STA ×2 (20:14→20:15)
--- NOTE | 2017-12-17 22:37 | ED PDOC ---
HPI: Psych/Substance Abuse Time Seen by Provider: 12/17/17 20:11 Chief Complaint (Nursing): Alcohol Ingestion Chief Complaint (Provider): SOB and rash ED Caveat: Intoxicated History Per: Patient History/Exam Limitations: no limitations Onset/Duration Of Symptoms: Days (x1 week) Current Symptoms Are (Timing): Still Present Modifying Factor(s): Alcohol Additional Complaint(s): 52 y/o Caucasion female with a history of COPD and alcoholism present to the ED with SOB and a rash. Patient states she noticed the rash a week ago extending from her trunk to her upper extremities. She states she saw bugs and feels itchy. Patient is well known to [facility] and is homeless. Of note, patient is currently intoxicated due to alcohol abuse. PMD: [facility] Past Medical History Reviewed: Historical Data, Nursing Documentation, Vital Signs Vital Signs: Last Vital Signs Temp 97.4 F L 12/17/17 19:54 Pulse 89 12/17/17 19:54 Resp 16 12/17/17 19:54 BP Pulse Ox 100 12/17/17 19:54 - Medical History PMH: Asthma, COPD, HTN, Hypercholesterolemia, Pneumonia, Seizures Denies: HIV, Chronic Kidney Disease, Sexually Transmitted Disease Other PMH: Alcoholism - Surgical History Surgical History: No Surg Hx - Family History Family History: States: Unknown Family Hx - Social History Current smoker - smoking cessation education provided: Yes Alcohol: Other (alcoholic) Drugs: Denies - Immunization History Hx Tetanus Toxoid Vaccination: No Hx Influenza Vaccination: Yes (2013) Hx Pneumococcal Vaccination: Yes - Home Medications Home Medications: Ambulatory Orders Medication Instructions Recorded Tiotropium [Spiriva] 18 mcg IH DAILY 05/10/16 Montelukast [Singulair] 10 mg PO DAILY 01/22/17 Fluticasone/Vilanterol [Breo 1 each IH DAILY #1 blst.w.dev 01/28/17 Ellipta 100-25 Mcg INH] Albuterol HFA [Ventolin HFA 90 0.09 mg IH Q6 #1 unit 08/20/17 mcg/actuation (8 g)] Albuterol HFA [Ventolin HFA 90 2 puff IH Q4H #1 puff 09/29/17 mcg/actuation (8 g)] Albuterol HFA [Ventolin HFA 90 2 puff IH [id number] #1 puff 10/07/17 mcg/actuation (8 g)] Fluticasone/Salmeterol 250/50 1 puff IH BID #1 inh 10/07/17 [Advair Diskus 250/50] Prednisone 50 mg PO DAILY #5 tablet 10/07/17 Albuterol HFA [Ventolin HFA 90 2 puff IH [id number] #1 puff 10/20/17 mcg/actuation (8 g)] Hydrocortisone Emmie 0.2% Cr 1 applic TOP BID #1 tube 10/20/17 [Westcort] Ibuprofen [Motrin Tab] 600 mg PO QID PRN #20 tab 10/20/17 predniSONE [predniSONE Tab] 40 mg PO DAILY #8 tab 10/20/17 Albuterol Sulfate [Proair Hfa] 0.09 mg IH Q6H PRN #2 inh 10/29/17 predniSONE [predniSONE Tab] 20 mg PO BID 5 Days tab 10/29/17 predniSONE [predniSONE Tab] 60 mg PO QAM #12 tab 11/23/17 Albuterol HFA [Ventolin HFA 90 1 - 2 puff IH Q6 PRN #1 inhaler 12/18/17 mcg/actuation (8 g)] predniSONE [predniSONE Tab] 60 mg PO QAM #12 tab 12/18/17 - Allergies Allergies/Adverse Reactions: Allergies Allergy/AdvReac Type Severity Reaction Status Date / Time apple Allergy Severe ITCHING Verified 12/17/17 19:53 carrot Allergy Severe RASH Verified 12/17/17 19:53 peach Allergy Severe ITCHING Verified 12/17/17 19:53 peanut Allergy Severe ITCHING Verified 12/17/17 19:53 plum Allergy Severe ITCHING Verified 12/17/17 19:53 Review of Systems ROS Statement: Except As Marked, All Systems Reviewed And Found Negative Respiratory: Positive for: Shortness of Breath Skin: Positive for: Rash (scab forming) Physical Exam - Reviewed Nursing Documentation Reviewed: Yes Vital Signs Reviewed: Yes - Physical Exam Appears: Positive for: No Acute Distress Head Exam: Positive for: ATRAUMATIC, NORMAL INSPECTION, NORMOCEPHALIC Skin: Positive for: Rash (difused scabiform to the trunk and upper extremities) Eye Exam: Positive for: EOMI, Normal appearance, PERRL ENT: Positive for: Normal ENT Inspection Neck: Positive for: Normal, Painless ROM, Supple Cardiovascular/Chest: Positive for: Regular Rate, Rhythm. Negative for: Murmur Respiratory: Positive for: Normal Breath Sounds, Wheezing (bilateral upon exhalation). Negative for: Respiratory Distress Gastrointestinal/Abdominal: Positive for: Normal Exam, Soft Back: Positive for: Normal Inspection. Negative for: L CVA Tenderness, R CVA Tenderness, Vertebral Tenderness Extremity: Positive for: Normal ROM. Negative for: Pedal Edema, Deformity Neurologic/Psych: Positive for: Alert, Oriented (x3), Other (speech is slurred) . Negative for: Motor/Sensory Deficits - ECG O2 Sat by Pulse Oximetry: 100 (RA) Pulse Ox Interpretation: Normal Medical Decision Making Medical Decision Making: Time: 19:54 Impression: Scabies and COPD with exacerbation Initial Plan: * EKG * Albuterol 3 ml INH x2 * Permethrin 5% one application * Prednisone 60 mg PO Diagnosis is scabies. Patient requires no further treatment at the ED at this time. She is stable for discharge. Follow up with PMD in 1-2 days. Return to ED if symptoms persist or worsen. Scribe Attestation: Documented by Siva Vivar acting as a scribe for Julio Murrell MD. Scribe Attestation: All medical record entries made by the Scribe were at my direction and personally dictated by me. I have reviewed the chart and agree that the record accurately reflects my personal performance of the history, physical exam, medical decision making, and the department course for this patient. I have also personally directed, reviewed, and agree with the discharge instructions and disposition. Disposition - Clinical Impression Clinical Impression: COPD exacerbation, Scabies - Patient ED Disposition Is Patient to be Admitted: No - Disposition Disposition: Routine/Home Disposition Time: 05:25 Condition: STABLE Prescriptions: Albuterol HFA [Ventolin HFA 90 mcg/actuation (8 g)] 1 - 2 puff IH Q6 PRN #1 inhaler PRN Reason: Shortness Of Breath predniSONE [predniSONE Tab] 60 mg PO QAM #12 tab Instructions: Scabies, Chronic Obstructive Pulmonary Disease (COPD), Including Emphysema Forms: [employer] (Armenian)
[2017-12-18] MEDS ORDERED: Albuterol-Ipratrop 3 mg / 0.5 (3 ml) UD ONE ×2 (03:28→03:29)
[2017-12-18] MEDS: Permethrin 5% CREAM TOP ONE ×2 (05:23→05:38)
[2017-12-18 05:41] VITALS: BP 136/82; PULSE 86; TEMP 98.4; O2SAT 99
--- NOTE | 2017-12-18 08:55 | CARD ---
APPROVED REPORT EKG Measurement Heart [id number] <Conclusion> Normal sinus rhythm Normal ECG
== END 2017-12-18 05:42 | disposition home or self-care (01) ==
LOC: H.ER 19:50
DX: J44.1 Chronic obstructive pulmonary disease with (acute) exacerbation (principal); B86 Scabies; E78.00 Pure hypercholesterolemia, unspecified; I10 Essential (primary) hypertension; Z59.0 Homelessness

== ENCOUNTER 2018-01-16 22:45 | Emergency (ER) | payer MEDICAID ==
[2018-01-16 22:45] VITALS: BMI 28.3
[2018-01-16 23:00] VITALS: O2SAT 97
[2018-01-17] MEDS ORDERED: Albuterol-Ipratrop 3 mg / 0.5 (3 ml) UD INH STA (00:59)
--- NOTE | 2018-01-17 04:44 | ED PDOC ---
HPI: SOB/CHF/COPD Time Seen by Provider: 01/17/18 00:56 Chief Complaint (Nursing): Shortness Of Breath Chief Complaint (Provider): Shortness Of Breath History Per: Patient History/Exam Limitations: no limitations Additional Complaint(s): 52 years old desolated female with history of COPD, CHF and malingering disorder presents to the ED with complaints of shortness of breath. Patient is known for bed seeking behavior, drinking alcohol and smoking cigarettes. She was discharged from [facility], [place] prior to arrival and came here with SOB. Patient denies any fever, nausea, vomiting or diarrhea. PMD: non provided Past Medical History Reviewed: Historical Data, Nursing Documentation, Vital Signs Vital Signs: Last Vital Signs Temp 97.4 F L 01/16/18 22:57 Pulse 75 01/16/18 22:57 Resp 18 01/17/18 04:33 BP 108/71 01/16/18 22:57 Pulse Ox 97 01/17/18 04:50 - Medical History PMH: Asthma, COPD, HTN, Hypercholesterolemia, Pneumonia, Seizures Denies: HIV, Chronic Kidney Disease, Sexually Transmitted Disease - Surgical History Surgical History: No Surg Hx - Family History Family History: States: Unknown Family Hx - Social History Current smoker - smoking cessation education provided: Yes (Cigarettes) Alcohol: Social Drugs: Denies - Immunization History Hx Tetanus Toxoid Vaccination: No Hx Influenza Vaccination: Yes (2013) Hx Pneumococcal Vaccination: Yes - Home Medications Home Medications: Ambulatory Orders Medication Instructions Recorded Fluticasone/Vilanterol [Breo 1 each IH DAILY #1 blst.w.dev 01/28/17 Ellipta 100-25 Mcg INH] Albuterol HFA [Ventolin HFA 90 2 puff IH Q4H #1 puff 09/29/17 mcg/actuation (8 g)] Aspirin [Aspirin Chewable] 81 mg PO DAILY #30 chew 01/13/18 Azithromycin [Z-Scottie] 250 mg PO DAILY #6 tab 01/13/18 Famotidine [Pepcid] 20 mg PO BID #60 tab 01/13/18 Folic Acid 1 mg PO DAILY #30 tab 01/13/18 Lisinopril [Zestril] 10 mg PO DAILY #30 tab 01/13/18 Montelukast [Singulair] 10 mg PO DAILY #30 tab 01/13/18 Multivitamins [Hexavitamin] 1 tab PO DAILY #30 tab 01/13/18 Rosuvastatin Calcium 2.5 [Crestor] 2.5 mg PO HS #30 tab 01/13/18 Tiotropium [Spiriva] 18 mcg INH RQ24 #1 inhaler 01/13/18 amLODIPine [Norvasc] 10 mg PO DAILY #30 tab 01/13/18 guaiFENesin [Mucinex LA] 600 mg PO BID #10 tab 01/13/18 predniSONE [Prednisone] 10 mg PO TID #9 tab 01/13/18 predniSONE [predniSONE Tab] 10 mg PO DAILY #3 tab 01/13/18 predniSONE [predniSONE Tab] 20 mg PO BID #6 tab 01/13/18 predniSONE [predniSONE Tab] 20 mg PO DAILY #3 tab 01/13/18 - Allergies Allergies/Adverse Reactions: Allergies Allergy/AdvReac Type Severity Reaction Status Date / Time apple Allergy Severe ITCHING Verified 12/17/17 19:53 carrot Allergy Severe RASH Verified 12/17/17 19:53 peach Allergy Severe ITCHING Verified 12/17/17 19:53 peanut Allergy Severe ITCHING Verified 12/17/17 19:53 plum Allergy Severe ITCHING Verified 12/17/17 19:53 Review of Systems ROS Statement: Except As Marked, All Systems Reviewed And Found Negative Constitutional: Negative for: Fever Respiratory: Positive for: Shortness of Breath Gastrointestinal: Negative for: Nausea, Vomiting, Diarrhea Physical Exam - Reviewed Nursing Documentation Reviewed: Yes Vital Signs Reviewed: Yes - Physical Exam Appears: Positive for: Non-toxic, No Acute Distress Head Exam: Positive for: ATRAUMATIC, NORMOCEPHALIC Skin: Positive for: Normal Color, Warm, Dry Eye Exam: Positive for: Normal appearance, EOMI, PERRL ENT: Positive for: Normal ENT Inspection Neck: Positive for: Normal, Painless ROM, Supple Cardiovascular/Chest: Positive for: Regular Rate, Rhythm. Negative for: Murmur Respiratory: Positive for: Normal Breath Sounds. Negative for: Respiratory Distress Gastrointestinal/Abdominal: Positive for: Normal Exam, Soft. Negative for: Tenderness Extremity: Positive for: Normal ROM. Negative for: Pedal Edema, Deformity Neurologic/Psych: Positive for: Alert, Oriented - ECG O2 Sat by Pulse Oximetry: 97 (RA) Pulse Ox Interpretation: Normal Medical Decision Making Medical Decision Making: Time: 58 Initial Impression: 52 years old female with COPD and malingening disorder. Initial Plan: --Duoneb 3 mg --Peak Flow Pre/Post Tx Time: 423 Patient is stable for discharge. Scribe Attestation: Documented by Basia Lowe, acting as a scribe for Julio Murrell MD. Provider Scribe Attestation: All medical record entries made by the Scribe were at my direction and personally dictated by me. I have reviewed the chart and agree that the record accurately reflects my personal performance of the history, physical exam, medical decision making, and the department course for this patient. I have also personally directed, reviewed, and agree with the discharge instructions and disposition. Disposition - Clinical Impression Clinical Impression: COPD (chronic obstructive pulmonary disease) - Disposition Disposition: Routine/Home Disposition Time: 04:24 Condition: STABLE Instructions: Chronic Obstructive Pulmonary Disease (COPD), Including Emphysema Forms: [employer] (Icelandic)
[2018-01-17 06:50] VITALS: BP 127/74; PULSE 86; RESP 16; TEMP 98.6
== END 2018-01-17 06:50 | disposition home or self-care (01) ==
LOC: H.ER 22:45
DX: J44.9 Chronic obstructive pulmonary disease, unspecified (principal); E78.00 Pure hypercholesterolemia, unspecified; I11.0 Hypertensive heart disease with heart failure; I50.9 Heart failure, unspecified; Z79.82 Long term (current) use of aspirin; F17.210 Nicotine dependence, cigarettes, uncomplicated

== ENCOUNTER 2018-02-01 22:58 | Emergency (ER) | payer MEDICAID ==
[2018-02-01 22:58] VITALS: BMI 28.3
--- NOTE | 2018-02-01 23:57 | ED PDOC ---
HPI: Psych/Substance Abuse Time Seen by Provider: 02/01/18 23:26 Chief Complaint (Nursing): Alcohol Ingestion Chief Complaint (Provider): Alcohol Ingestion ED Caveat: Intoxicated History Per: EMS History/Exam Limitations: intoxication Modifying Factor(s): Alcohol Additional Complaint(s): 52 year old female brought in by EMS presents to ED due to alcohol intoxication. Patient was found on the streets by EMS and was brought in for evaluation. PCP: None Past Medical History Reviewed: Historical Data, Nursing Documentation, Vital Signs Vital Signs: Last Vital Signs Temp 98 F 02/01/18 23:22 Pulse 98 H 02/01/18 23:22 Resp 16 02/01/18 23:22 BP 136/87 02/01/18 23:22 Pulse Ox 98 02/01/18 23:22 - Medical History PMH: Asthma, COPD, HTN, Hypercholesterolemia, Pneumonia, Seizures Denies: HIV, Chronic Kidney Disease, Sexually Transmitted Disease - Family History Family History: States: Unknown Family Hx - Social History Alcohol: > 2 Drinks/Day - Immunization History Hx Tetanus Toxoid Vaccination: No Hx Influenza Vaccination: Yes (2013) Hx Pneumococcal Vaccination: Yes - Home Medications Home Medications: Ambulatory Orders Medication Instructions Recorded Fluticasone/Vilanterol [Breo 1 each IH DAILY #1 blst.w.dev 01/28/17 Ellipta 100-25 Mcg INH] Albuterol HFA [Ventolin HFA 90 2 puff IH Q4H #1 puff 09/29/17 mcg/actuation (8 g)] Aspirin [Aspirin Chewable] 81 mg PO DAILY #30 chew 01/13/18 Azithromycin [Z-Scottie] 250 mg PO DAILY #6 tab 01/13/18 Famotidine [Pepcid] 20 mg PO BID #60 tab 01/13/18 Folic Acid 1 mg PO DAILY #30 tab 01/13/18 Lisinopril [Zestril] 10 mg PO DAILY #30 tab 01/13/18 Montelukast [Singulair] 10 mg PO DAILY #30 tab 01/13/18 Multivitamins [Hexavitamin] 1 tab PO DAILY #30 tab 01/13/18 Rosuvastatin Calcium 2.5 [Crestor] 2.5 mg PO HS #30 tab 01/13/18 Tiotropium [Spiriva] 18 mcg INH RQ24 #1 inhaler 01/13/18 amLODIPine [Norvasc] 10 mg PO DAILY #30 tab 01/13/18 guaiFENesin [Mucinex LA] 600 mg PO BID #10 tab 01/13/18 predniSONE [Prednisone] 10 mg PO TID #9 tab 01/13/18 predniSONE [predniSONE Tab] 10 mg PO DAILY #3 tab 01/13/18 predniSONE [predniSONE Tab] 20 mg PO BID #6 tab 01/13/18 predniSONE [predniSONE Tab] 20 mg PO DAILY #3 tab 01/13/18 - Allergies Allergies/Adverse Reactions: Allergies Allergy/AdvReac Type Severity Reaction Status Date / Time apple Allergy Severe ITCHING Verified 12/17/17 19:53 carrot Allergy Severe RASH Verified 12/17/17 19:53 peach Allergy Severe ITCHING Verified 12/17/17 19:53 peanut Allergy Severe ITCHING Verified 12/17/17 19:53 plum Allergy Severe ITCHING Verified 12/17/17 19:53 Review of Systems Review Of Systems: ROS cannot be obtained secondary to pt's inabilty to answer questions. (Patient is unable to give HPI due to intoxicated state) Physical Exam - Reviewed Nursing Documentation Reviewed: Yes Vital Signs Reviewed: Yes - Physical Exam Appears: Positive for: Non-toxic, No Acute Distress (Alcohol on breath) Skin: Positive for: Normal Color, Warm, Dry Cardiovascular/Chest: Positive for: Regular Rate, Rhythm. Negative for: Murmur Respiratory: Positive for: Normal Breath Sounds. Negative for: Respiratory Distress Gastrointestinal/Abdominal: Positive for: Normal Exam, Soft. Negative for: Tenderness Neurologic/Psych: Positive for: Gait (unsteady). Negative for: Alert (patient somnolent but arousable) - ECG O2 Sat by Pulse Oximetry: 98 (RA) Pulse Ox Interpretation: Normal Medical Decision Making Medical Decision Makin Initial impression: alcohol intoxication Initial plan: * Alcohol serum 2358 Accucheck: 78 [id number] Upon re-evaluation patient is awake, alert, oriented x3 and walking with a steady gait. Patient is stable for discharge home. Scribe Attestation: Documented by Robyn Ford acting as a scribe for Samir Glaser MD. Scribe Attestation: All medical record entries made by the Scribe were at my direction and personally dictated by me. I have reviewed the chart and agree that the record accurately reflects my personal performance of the history, physical exam, medical decision making, and the department course for this patient. I have also personally directed, reviewed, and agree with the discharge instructions and disposition. Disposition - Clinical Impression Clinical Impression: Alcohol use - Patient ED Disposition Is Patient to be Admitted: No - Disposition Referrals: Brijesh Johnson MD [Primary Care Provider] - Disposition: Routine/Home Disposition Time: 06:30 Condition: STABLE Forms: [employer] (Croatian)
[2018-02-02 06:35] VITALS: BP 128/82; PULSE 92; RESP 18; TEMP 98.2
[2018-02-02 06:53] VITALS: O2SAT 98
== END 2018-02-02 06:36 | disposition home or self-care (01) ==
LOC: H.ER 22:58
DX: F10.129 Alcohol abuse with intoxication, unspecified (principal); E78.00 Pure hypercholesterolemia, unspecified; I10 Essential (primary) hypertension; J44.9 Chronic obstructive pulmonary disease, unspecified; Z79.82 Long term (current) use of aspirin